=== PATIENT | male | born 1940 | race Caucasian/White ===

== ENCOUNTER 2017-09-08 21:51 | Inpatient (IN) | payer MEDICARE ==
[~2017-09-08 21:51] MED LIST: ALLO100T PO; ATEN25TA PO; DILT120C9 PO; FURO20TA PO; HYDR25TA5 PO; POTA-163 PO; WARF4TAB51 PO
[2017-09-08 22:03] VITALS: PULSE 98; RESP 16; TEMP 98.1; O2SAT 99
[2017-09-08 22:13] VITALS: BP 189/102; PULSE 90
[2017-09-08] MEDS ORDERED: TETANUS/DIPHTHERIA TOXOID ADULT 0.5 ML VIAL IM ONE (22:15)
[2017-09-08 22:22] LABS: AUTOMATED NEUTROPHIL # 4.5 TH/MM3 (1.8-7.7); BASOPHIL # 0.1 TH/MM3 (0-0.2); BASOPHIL % 0.9 % (0.0-2.0); EOSINOPHIL # 0.2 TH/MM3 (0-0.4); EOSINOPHIL % 1.9 % (0.0-4.0); HEMATOCRIT 44.4 % (39.0-51.0); HEMOGLOBIN 14.8 GM/DL (13.0-17.0); LYMPHOCYTE # 2.8 TH/MM3 (1.0-4.8); MEAN CELL VOLUME 85.6 FL (80.0-100.0); MEAN CORPUSCULAR HEMOGLOBIN 28.6 PG (27.0-34.0); MEAN CORPUSCULAR HGB CONC 33.4 % (32.0-36.0); MEAN PLATELET VOLUME 7.8 FL (7.0-11.0); MONO % 13.1 % (0.0-8.0); MONOCYTE # 1.1 TH/MM3 (0-0.9); NEUT % 52.1 % (16.0-70.0); PLATELET COUNT 265 TH/MM3 (150-450); RED BLOOD COUNT 5.19 MIL/MM3 (4.50-5.90); RED CELL DISTRIBUTION WIDTH 15.4 % (11.6-17.2); WHITE BLOOD COUNT 8.7 TH/MM3 (4.0-11.0)
--- NOTE | 2017-09-08 22:23 | PD ---
HPI Chief Complaint: Fall Time Seen by Provider: 22:02 Travel History International Travel<30 days: No Contact w/Intl Traveler<30days: No Traveled to known affect area: No History of Present Illness HPI 77-year-old male complains of right shoulder pain. Patient states that he fell from standing position on outstretched arm this evening. Patient states that he has abrasion to the nose and the chin. Patient denies any headache. Patient denies any facial pain. Patient denies any chest pain or shortness of breath. Patient denies abdominal pain. Patient complains of severe sharp pain localized the right shoulder. Patient denies any pain radiation. Patient denies any other injury. Patient states he is not up-to-date with TD booster. Patient states that he has a history of atrial ablation and on Coumadin. Patient has history of hypertension. EMS was called. Patient was given morphine 2 mg IV prior to arrival. Patient states that he had some alcohol drinks tonight also. PFSH Past Medical History Hx Anticoagulant Therapy: Yes Cardiovascular Problems: Yes Cerebrovascular Accident: Yes Social History Tobacco Use: No Allergies-Medications (Allergen,Severity, Reaction): Coded Allergies: No Known Allergies (Verified Allergy, Unknown, 09/08/17) Reported Meds & Prescriptions Reported Meds & Active Scripts Active Reported Allopurinol 100 Mg Tab 100 Mg PO DAILY Warfarin 2 Mg Tab 2 Mg PO DAILY Potassium Chloride ER (Potassium Chloride) 20 Meq Tab 20 Meq PO DAILY Furosemide 20 Mg Tab 20 Mg PO DAILY Hydrochlorothiazide 25 Mg Tab 25 Mg PO DAILY Diltiazem ER 12 HR (Diltiazem HCl) 120 Mg Caper 120 Mg PO BID Atenolol 25 Mg Tab 25 Mg PO DAILY Review of Systems General / Constitutional: No: Fever Eyes: No: Visual changes HENT: No: Headaches Cardiovascular: No: Chest Pain or Discomfort Respiratory: No: Shortness of Breath Gastrointestinal: No: Abdominal Pain Genitourinary: No: Dysuria Musculoskeletal: Positive: Pain Skin: No Rash Neurologic: No: Weakness Psychiatric: No: Depression Endocrine: No: Polydipsia Hematologic/Lymphatic: No: Easy Bruising Physical Exam Narrative GENERAL: Well-nourished, well-developed patient. SKIN: Focused skin assessment warm/dry. HEAD: Normocephalic. Patient has 1.5 cm laceration to the bridge of the nose. No active bleeding. Patient has abrasion to the chin. Patient has no tenderness on palpation of the nose and the jaw. Patient had no tenderness on palpation of the bony structures of the face. EYES: No scleral icterus. No injection or drainage. NECK: Supple, trachea midline. No JVD or lymphadenopathy. No tenderness on palpation of the neck. CARDIOVASCULAR: Regular rate and rhythm without murmurs, gallops, or rubs. RESPIRATORY: Breath sounds equal bilaterally. No accessory muscle use. GASTROINTESTINAL: Abdomen soft, non-tender, nondistended. MUSCULOSKELETAL: Patient has soft tissue swelling diffuse tenderness of the right shoulder joint. Limited range of motion of the right shoulder secondary to pain. Sensory motor function distally intact. BACK: Nontender without obvious deformity. No CVA tenderness. Neurologic exam normal. Data Data Last Documented VS Vital Signs Date Time Temp Pulse Resp B/P (MAP) Pulse Ox O2 Delivery O2 Flow Rate FiO2 09/08/17 22:13 90 189/102 (131) 09/08/17 22:05 Room Air 09/08/17 22:03 98.1 16 99 Orders Orders Complete Blood Count With Diff (09/08/17 22:03) Basic Metabolic Panel (Bmp) (09/08/17 22:03) Prothrombin Time / Inr (Pt) (09/08/17 22:03) Act Partial Throm Time (Ptt) (09/08/17 22:03) Iv Access Insert/Monitor (09/08/17 22:03) Ecg Monitoring (09/08/17 22:03) Oximetry (09/08/17 22:03) Alcohol (Ethanol) (09/08/17 22:03) Tetanus/Diphtheria Tox Adult (Tetanus/Di (09/08/17 22:15) Shoulder, Limited(2vws) (09/08/17 22:08) Ct Brain W/O Iv Contrast(Rout) (09/08/17 22:12) Ct Shoulder W/O Contrast (09/08/17 ) ^ Lab Follow Up (09/08/17 23:11) Prothrombin Complex Conc Inj (Kcentra In (09/08/17 23:45) Phytonadione Inj (Vitamin K Inj) (09/08/17 23:15) Splint Or Brace Apply/Monitor (09/08/17 23:14) Admit Order (Ed Use Only) (09/08/17 23:24) Electrocardiogram (09/08/17 23:25) Chest, Single Ap (09/08/17 23:25) Type And Screen (09/08/17 23:25) Labs Laboratory Tests Test 09/08/17 22:10 09/08/17 23:26 White Blood Count 8.7 TH/MM3 Red Blood Count 5.19 MIL/MM3 Hemoglobin 14.8 GM/DL Hematocrit 44.4 % Mean Corpuscular Volume 85.6 FL Mean Corpuscular Hemoglobin 28.6 PG Mean Corpuscular Hemoglobin Concent 33.4 % Red Cell Distribution Width 15.4 % Platelet Count 265 TH/MM3 Mean Platelet Volume 7.8 FL Neutrophils (%) (Auto) 52.1 % Lymphocytes (%) (Auto) 32.0 % Monocytes (%) (Auto) 13.1 % Eosinophils (%) (Auto) 1.9 % Basophils (%) (Auto) 0.9 % Neutrophils # (Auto) 4.5 TH/MM3 Lymphocytes # (Auto) 2.8 TH/MM3 Monocytes # (Auto) 1.1 TH/MM3 Eosinophils # (Auto) 0.2 TH/MM3 Basophils # (Auto) 0.1 TH/MM3 CBC Comment DIFF FINAL Differential Comment Prothrombin Time 26.0 SEC Prothromb Time International Ratio 2.6 RATIO Activated Partial Thromboplast Time 35.0 SEC Blood Urea Nitrogen 13 MG/DL Creatinine 1.15 MG/DL Random Glucose 145 MG/DL Calcium Level 8.5 MG/DL Sodium Level 140 MEQ/L Potassium Level 3.3 MEQ/L Chloride Level 102 MEQ/L Carbon Dioxide Level 27.8 MEQ/L Anion Gap 10 MEQ/L Estimat Glomerular Filtration Rate 62 ML/MIN Ethyl Alcohol Level LESS THAN 3 MG/DL [facility] Medical Decision Making Medical Screen Exam Complete: Yes Emergency Medical Condition: Yes Interpretation(s) 23:16 PM. Last Impressions Head CT 09/08/172211 Signed Impressions: Service Date/Time: Friday, September 08, 2017 22:32 - CONCLUSION: No acute intracranial abnormality. Lisandro Holloway MD Shoulder X-Ray 09/08/172207 Signed Impressions: Service Date/Time: Friday, September 08, 2017 22:23 - CONCLUSION: Fracture or dislocation of the glenohumeral joint as above. Lisandro Holloway MD 23:16 PM. CBC within normal limits. INR 2.6. Differential Diagnosis Differential diagnosis including fracture, dislocation, abrasion, laceration, intracranial hemorrhage. Narrative Course 77-year-old male with complains of right shoulder pain status post fall. Patient's on Coumadin. Patient has laceration to the nose and abrasion to the chin. Td booster given. INR 2.6. Patient will be given K Centra and vitamin K to reverse Coumadin. Sling and swath the right arm. Orthopedic consult Dr. Luis in a.m. for surgery. Diagnosis Primary Impression: Fracture of right humerus Qualified Codes: S42.231A - 3-part fracture of surgical neck of right humerus , initial encounter for closed fracture Additional Impressions: Dislocation, shoulder Qualified Codes: S43.004A - Unspecified dislocation of right shoulder joint, initial encounter Laceration of nose Qualified Codes: S01.21XA - Laceration without foreign body of nose, initial encounter Admitting Information Admitting Physician Requests: Admit Scripts Hydrocodone-Acetaminophen (Hydrocodone-Acetaminophen) 7.5 Mg-325 Mg Tab 1 TAB PO Q4H Y for PAIN, #60 TAB 0 Refills Prov: Yariel Juan/Utilization Review Coordinator VICTORINA 09/09/17 Waqar Mojica MD Sep 08, 2017 22:23
[2017-09-08 22:31] LABS: INTERNATIONAL NORMALIZED RATIO 2.6 RATIO
--- NOTE | 2017-09-08 22:42 | RADRPT ---
EXAM DATE/TIME: 09/08/2017 22:23 [facility] COMPARISON: No previous studies available for comparison. INDICATIONS : Right shoulder pain after fall. MEDICAL HISTORY : None. SURGICAL HISTORY : None. ENCOUNTER: Initial ACUITY: 1 day PAIN SCORE: 10/10 LOCATION: Right shoulder. FINDINGS: Comminuted fractures seen of the surgical neck and greater tuberosity of the humerus. Greater tuberos ity is superiorly displaced. There is anterior dislocation of the glenohumeral joint. CONCLUSION: Fracture or dislocation of the glenohumeral joint as above. Lisandro Holloway MD on September 08, 2017 at 22:39 Board Certified Radiologist. This report was verified electronically.
--- NOTE | 2017-09-08 22:48 | RADRPT ---
EXAM DATE/TIME: 09/08/2017 22:32 [facility] COMPARISON: No previous studies available for comparison. INDICATIONS : Trauma. Fall. RADIATION DOSE: ?41.72 CTDIvol (mGy) MEDICAL HISTORY : Cerebrovascular disease. Cardiovascular disease Hypertension. SURGICAL HISTORY : None. ENCOUNTER: Initial ACUITY: 1 day PAIN SCALE: 5/10 LOCATION: cranial TECHNIQUE: Multiple contiguous axial images were obtained of the head. Using automated exposure control and adj ustment of the mA and/or kV according to patient size, radiation dose was kept as low as reasonably a chievable to obtain optimal diagnostic quality images. DICOM format image data is available electro nically for review and comparison. FINDINGS: CEREBRUM: The ventricles are normal for age. No evidence of midline shift, mass lesion, hemorrhage or acute in farction. No extra-axial fluid collections are seen. POSTERIOR FOSSA: The cerebellum and brainstem are intact. The 4th ventricle is midline. The cerebellopontine angle i s unremarkable. EXTRACRANIAL: The visualized portion of the orbits is intact. SKULL: The calvaria is intact. No evidence of skull fracture. CONCLUSION: No acute intracranial abnormality. Lisandro Holloway MD on September 08, 2017 at 22:45 Board Certified Radiologist. This report was verified electronically.
[2017-09-08] MEDS ORDERED: PHYTONADIONE 10 MG/ML VIAL SQ ONE (23:15)
[2017-09-08] MEDS ORDERED: PROTHROMBIN COMPLEX CONC INJ 2,500 UNITS in SYRINGE/BAG 1 EA IV ONE (23:45)
--- NOTE | 2017-09-08 23:47 | HHI.HP ---
[facility] Service Family Medicine Primary Care Physician Brandon Gallegos MD Admission Diagnosis Fracture dislocation right shoulder. Patient is on anticoagulation Diagnoses: International Travel<30 Days: No Contact w/Intl Traveler<30days: No Known Affected Area: No History of Present Illness Mr. Ram is a 77-year-old white male with a past medical history of hypertension and atrial fibrillation presenting with right shoulder pain. He states that he was at the baseball game when he was walking to his seat and slipped on the edge of a step. He fell on his outstretched arm and landed on his nose. He states that he heard a pop in his arm and was unable to move it. However, he is able to move his fingers and has no loss of sensation. He did not lose consciousness. He states that after he fell he sat down and defecated all over himself. He was taken to the hospital by [facility]. Of note, he had 2 cups of beer at the game. (Vale Luna MD R1) Review of Systems Constitutional: DENIES: Fever, Chills Eyes: DENIES: Blurred vision Ears, nose, mouth, throat: DENIES: Tinnitus Respiratory: DENIES: Cough, Shortness of breath Cardiovascular: DENIES: Chest pain Gastrointestinal: DENIES: Abdominal pain, Constipation, Diarrhea Musculoskeletal: COMPLAINS OF: Joint pain, Neck pain (sore on the right side), DENIES: Back pain Neurologic: DENIES: Headache, Localized weakness, Paresthesias (Vale Luna MD R1) Past Family Social History Past Medical History CVA 2013 HTN Afib Gout HLD Glaucoma left eye CHF Past Surgical History Right eye slipped macula 2013 (distorted R vision) Right inguinal hernia x3 2009 Reported Medications Reported Meds & Active Scripts Active Reported Allopurinol 100 Mg Tab 100 Mg PO DAILY Warfarin 2 Mg Tab 2 Mg PO DAILY Potassium Chloride ER (Potassium Chloride) 20 Meq Tab 20 Meq PO DAILY Furosemide 20 Mg Tab 20 Mg PO DAILY Hydrochlorothiazide 25 Mg Tab 25 Mg PO DAILY Diltiazem ER 12 HR (Diltiazem HCl) 120 Mg Caper 120 Mg PO BID Atenolol 25 Mg Tab 25 Mg PO DAILY (Vale Luna MD R1) Allergies: Coded Allergies: No Known Allergies (Verified Allergy, Unknown, 09/08/17) Family History Mother-lung cancer 72y passed Father-MS 75y Brother-51y passed due to lung cancer Sister-60y passed due to bone cancer Social History Marital Status: Living Situation: lives alone Education: 4 years grad Work history: Currently retired, [place], management; gets some disability due to hernia Tobacco: Smokes cigars daily for 3 months. Alcohol: Occasional, 1x/week Illicit drug use: denies (Vale Luna MD R1) Physical Exam Vital Signs Vital Signs Date Time Temp Pulse Resp B/P (MAP) Pulse Ox O2 Delivery O2 Flow Rate FiO2 09/08/17 22:13 90 189/102 (131) 09/08/17 22:05 Room Air 09/08/17 22:03 98.1 98 16 99 Physical Exam GENERAL: This is a well-nourished, well-developed patient lying in bed, in no apparent distress. SKIN: Cool and dry. Ecchymoses and abrasions over nose and chin. 1 cm laceration on tip of nose. no active bleeding. HEAD: Atraumatic. Normocephalic. No temporal or scalp tenderness. EYES: Pupils equal round and reactive. Extraocular motions intact with lateral strabismus of right eye. No scleral icterus. No injection or drainage. ENT: Nose without bleeding, purulent drainage or septal hematoma. Throat without erythema, tonsillar hypertrophy or exudate. Uvula midline. Airway patent. NECK: Trachea midline. No JVD or lymphadenopathy. Supple, nontender, no meningeal signs. CARDIOVASCULAR: Irregular rate and rhythm without murmurs, gallops, or rubs. RESPIRATORY: Clear to auscultation. Breath sounds equal bilaterally. No wheezes , rales, or rhonchi. GASTROINTESTINAL: Abdomen soft, non-tender, nondistended. No hepato-splenomegaly , or palpable masses. No guarding. MUSCULOSKELETAL: Extremities without clubbing, cyanosis, or edema. No joint tenderness, effusion, or edema noted. No calf tenderness. Negative Homans sign bilaterally. Greatly limited active ROM of right arm. NEUROLOGICAL: Awake and alert. Motor and sensory grossly within normal limits. Normal speech. Laboratory Laboratory Tests Test 09/08/17 22:10 09/08/17 23:26 White Blood Count 8.7 Red Blood Count 5.19 Hemoglobin 14.8 Hematocrit 44.4 Mean Corpuscular Volume 85.6 Mean Corpuscular Hemoglobin 28.6 Mean Corpuscular Hemoglobin Concent 33.4 Red Cell Distribution Width 15.4 Platelet Count 265 Mean Platelet Volume 7.8 Neutrophils (%) (Auto) 52.1 Lymphocytes (%) (Auto) 32.0 Monocytes (%) (Auto) 13.1 Eosinophils (%) (Auto) 1.9 Basophils (%) (Auto) 0.9 Neutrophils # (Auto) 4.5 Lymphocytes # (Auto) 2.8 Monocytes # (Auto) 1.1 Eosinophils # (Auto) 0.2 Basophils # (Auto) 0.1 CBC Comment DIFF FINAL Differential Comment Prothrombin Time 26.0 Prothromb Time International Ratio 2.6 Activated Partial Thromboplast Time 35.0 (Vale Luna MD R1) Result Diagram: 09/08/172209 Imaging Last Impressions Head CT 09/08/172211 Signed Impressions: Service Date/Time: Friday, September 08, 2017 22:32 - CONCLUSION: No acute intracranial abnormality. Lisandro Holloway MD Shoulder X-Ray 09/08/172207 Signed Impressions: Service Date/Time: Friday, September 08, 2017 22:23 - CONCLUSION: Fracture or dislocation of the glenohumeral joint as above. Lisandro Holloway MD (Vale Luna MD R1) Caprini VTE Risk Assessment Caprini VTE Risk Assessment: Mod/High Risk (score >= 2) Caprini Risk Assessment Model Point Value = 1 Point Value = 2 Point Value = 3 Point Value = 5 Age 41-60 Minor surgery BMI > 25 kg/m2 Swollen legs Varicose veins or History of unexplained or recurrent spontaneous Oral contraceptives or hormone replacement Sepsis (< 1 month) Serious lung disease, including pneumonia (< 1 month) Abnormal pulmonary function Acute myocardial infarction Congestive heart failure (< 1 month) History of inflammatory bowel disease Medical patient at bed rest Age 61-74 Arthroscopic surgery Major open surgery (> 45 min) Laparoscopic surgery (> 45 min) Malignancy Confined to bed (> 72 hours) Immobilizing plaster cast Central venous access Age >= 75 History of VTE Family history of VTE Factor V Leiden Prothrombin [id number] Lupus anticoagulant Anticardiolipin antibodies Elevated serum homocysteine Heparin-induced thrombocytopenia Other congenital or acquired thrombophilia Stroke (< 1 month) Elective arthroplasty Hip, pelvis, or leg fracture Acute spinal cord injury (< 1 month) Prophylaxis Regimen Total Risk Factor Score Risk Level Prophylaxis Regimen 0-1 Low Early ambulation 2 Moderate Order ONE of the following: *Sequential Compression Device (SCD) *Heparin 5000 units SQ BID 3-4 Higher Order ONE of the following medications: *Heparin 5000 units SQ TID *Enoxaparin/Lovenox 40 mg SQ daily (WT < 150 kg, CrCl > 30 mL/min) *Enoxaparin/Lovenox 30 mg SQ daily (WT < 150 kg, CrCl > 10-29 mL/min) *Enoxaparin/Lovenox 30 mg SQ BID (WT < 150 kg, CrCl > 30 mL/min) AND/OR *Sequential Compression Device (SCD) 5 or more Highest Order ONE of the following medications: *Heparin 5000 units SQ TID (Preferred with Epidurals) *Enoxaparin/Lovenox 40 mg SQ daily (WT < 150 kg, CrCl > 30 mL/min) *Enoxaparin/Lovenox 30 mg SQ daily (WT < 150 kg, CrCl > 10-29 mL/min) *Enoxaparin/Lovenox 30 mg SQ BID (WT < 150 kg, CrCl > 30 mL/min) AND *Sequential Compression Device (SCD) (Vale Luna MD R1) Assessment and Plan Assessment and Plan 77-year-old white male with past history of repeat history of atrial fibrillation presenting to the ED with right shoulder pain after a fall. He is being admitted to our inpatient service Code Status Full code Discussed Condition With Dr. BARBARA Langston (Vale Luna MD R1) Attending Attestation Patient was seen and examined at approximately 11:45 AM, discussed with the medicine team. This 77-year-old man was at the [facility] where he fell on cement, caught himself with his right arm and hit his face. His son was with him and he was transported to the emergency department via [facility]. He has been seen by the medicine team as well as by Dr. Luis and surgery is planned for today. He is hopeful that only pins will be needed and that he will need an implant. He is on Coumadin and this has been reversed with vitamin K. We will need to discuss further anticoagulation after his surgical procedure. Significant bruising is noted of his chin, abrasion and bruising of his nose. His exam is as noted above, heart is irregular, lungs are clear, he is able to move fingers of his right hand and his sensation is intact. He is a patient of Dr. Gallegos, and we will continue to follow him throughout his hospitalization. (Yulia Langston MD) Problem List: (1) Fracture of right humerus ICD Codes: S42.301A - Unspecified fracture of shaft of humerus, right arm, initial encounter for closed fracture Status: Acute Plan: Patient with fracture and dislocation of right humerus after a fall. Head CT was negative. Shoulder x-ray on admission shows comminuted fractures of the surgical neck and greater tuberosity of the humerus. Greater tuberosity superiorly displaced. Anterior dislocation of the glenohumeral joint.\ -Orthopedic surgery consulted, appreciate recommendations -Patient to go to surgery in the a.m. with Dr. Luis -N.p.o. after midnight -Requested Coumadin to be reversed with vitamin K -pain management with Fowler and morphine as breakthrough (2) Atrial fibrillation ICD Codes: I48.91 - Unspecified atrial fibrillation Status: Chronic Plan: -Patient on warfarin 2 mg p.o. daily as anticoagulation -This was requested to be reversed by orthopedic surgery, see above -SCDs as prophylaxis for the time being until post surgery -Recheck INR in a.m. -Continue at home diltiazem ER 120 mg p.o. twice daily -Converted to diltiazem CD 240 mg at bedtime by pharmacy due to protocol -Continue at home atenolol 25 mg p.o. daily (3) HTN (hypertension) ICD Codes: I10 - Essential (primary) hypertension Status: Chronic Plan: -Continue at home hydrochlorothiazide 25 mg p.o. daily (4) Congestive heart failure ICD Codes: I50.9 - Heart failure, unspecified Status: Chronic Plan: -Continue at home furosemide 20 mg p.o. daily -Continue at home potassium chloride ER 20 mEq p.o. daily (5) Gout ICD Codes: M10.9 - Gout, unspecified Status: Chronic Plan: -Continue at home allopurinol 100 mg p.o. daily (6) FEN Status: Acute Plan: Fluids: NS @ 135ml/hr Electrolytes: Hypokalemia noted on admission, status post potassium chloride 40 mEq Nutrition: N.p.o. DVT Prophylaxis: Early ambulation. bilateral SCDs GI Prophylaxis: None indicated at this time Pain/fever management: Tylenol as needed for fever, Fowler PRN pain, morphine for breakthrough (Vale Luna MD R1) Physician Certification 2 Midnight Certification Type: Admission for Inpatient Services Order for Inpatient Services The services are ordered in accordance with Medicare regulations or non- Medicare payer requirements, as applicable. In the case of services not specified as inpatient-only, they are appropriately provided as inpatient services in accordance with the 2-midnight benchmark. Estimated LOS (days): 2 days is the estimated time the patient will need to remain in the hospital, assuming treatment plan goals are met and no additional complications. Post-Hospital Plan: Not yet determined (Vale Luna MD R1) Problem Qualifiers (1) Fracture of right humerus: Qualified Codes: S42.231A - 3-part fracture of surgical neck of right humerus, initial encounter for closed fracture (2) Atrial fibrillation: Qualified Codes: I48.91 - Unspecified atrial fibrillation (3) HTN (hypertension): Qualified Codes: I10 - Essential (primary) hypertension (4) Congestive heart failure: Qualified Codes: I50.9 - Heart failure, unspecified Vale Luna MD R1 Sep 08, 2017 23:47 Yulia Langston MD Sep 09, 2017 15:00
[2017-09-08 23:58] LABS: BICARBONATE 27.8 MEQ/L (21.0-32.0); BLOOD UREA NITROGEN 13 MG/DL (7-18); CALCIUM 8.5 MG/DL (8.5-10.1); CHLORIDE 102 MEQ/L (98-107); CREATININE 1.15 MG/DL (0.60-1.30); GLOMERULAR FILTRATION RATE 62 ML/MIN (>89); GLUCOSE,RANDOM 145 MG/DL (74-106); SODIUM (NA) 140 MEQ/L (136-145)
[2017-09-09] VITALS (14 sets, daily range): BP systolic 115–220; BP diastolic 73–112; PULSE 55–107; RESP 14–19; TEMP 98.3–99.1; O2SAT 91–100
--- NOTE | 2017-09-09 00:01 | RADRPT ---
EXAM DATE/TIME: 09/08/2017 23:35 [facility] COMPARISON: No previous studies available for comparison. INDICATIONS : Pre OP right shoulder injury, evaluate for pneumonia, pneumothorax, and communicable disease. MEDICAL HISTORY : None. SURGICAL HISTORY : None. ENCOUNTER: Initial ACUITY: 1 day PAIN SCORE: 0/10 LOCATION: Bilateral chest FINDINGS: There is a fracture dislocation of the right shoulder. Heart size enlarged. Probable dependent atelectasis. Mild vascular congestion pattern. No effusion. N o pneumothorax. CONCLUSION: 1. Cardiomegaly with vascular congestion pattern probable dependent atelectasis. 2. Fracture dislocation right shoulder. Arley Wood MD on September 08, 2017 at 23:58 Board Certified Radiologist. This report was verified electronically.
--- NOTE | 2017-09-09 00:10 | PD ---
Physical Exam Time Seen by Provider: 00:09 Data Data Last Documented VS Vital Signs Date Time Temp Pulse Resp B/P (MAP) Pulse Ox O2 Delivery O2 Flow Rate FiO2 09/08/17 22:13 90 189/102 (131) 09/08/17 22:05 Room Air 09/08/17 22:03 98.1 16 99 Orders Orders Complete Blood Count With Diff (09/08/17 22:03) Basic Metabolic Panel (Bmp) (09/08/17 22:03) Prothrombin Time / Inr (Pt) (09/08/17 22:03) Act Partial Throm Time (Ptt) (09/08/17 22:03) Iv Access Insert/Monitor (09/08/17 22:03) Ecg Monitoring (09/08/17 22:03) Oximetry (09/08/17 22:03) Alcohol (Ethanol) (09/08/17 22:03) Tetanus/Diphtheria Tox Adult (Tetanus/Di (09/08/17 22:15) Shoulder, Limited(2vws) (09/08/17 22:08) Ct Brain W/O Iv Contrast(Rout) (09/08/17 22:12) Ct Shoulder W/O Contrast (09/08/17 ) ^ Lab Follow Up (09/08/17 23:11) Prothrombin Complex Conc Inj (Kcentra In (09/08/17 23:45) Phytonadione Inj (Vitamin K Inj) (09/08/17 23:15) Splint Or Brace Apply/Monitor (09/08/17 23:14) Admit Order (Ed Use Only) (09/08/17 23:24) Electrocardiogram (09/08/17 23:25) Chest, Single Ap (09/08/17 23:25) Type And Screen (09/08/17 23:25) Labs Laboratory Tests Test 09/08/17 22:10 09/08/17 23:26 White Blood Count 8.7 TH/MM3 Red Blood Count 5.19 MIL/MM3 Hemoglobin 14.8 GM/DL Hematocrit 44.4 % Mean Corpuscular Volume 85.6 FL Mean Corpuscular Hemoglobin 28.6 PG Mean Corpuscular Hemoglobin Concent 33.4 % Red Cell Distribution Width 15.4 % Platelet Count 265 TH/MM3 Mean Platelet Volume 7.8 FL Neutrophils (%) (Auto) 52.1 % Lymphocytes (%) (Auto) 32.0 % Monocytes (%) (Auto) 13.1 % Eosinophils (%) (Auto) 1.9 % Basophils (%) (Auto) 0.9 % Neutrophils # (Auto) 4.5 TH/MM3 Lymphocytes # (Auto) 2.8 TH/MM3 Monocytes # (Auto) 1.1 TH/MM3 Eosinophils # (Auto) 0.2 TH/MM3 Basophils # (Auto) 0.1 TH/MM3 CBC Comment DIFF FINAL Differential Comment Prothrombin Time 26.0 SEC Prothromb Time International Ratio 2.6 RATIO Activated Partial Thromboplast Time 35.0 SEC Blood Urea Nitrogen 13 MG/DL Creatinine 1.15 MG/DL Random Glucose 145 MG/DL Calcium Level 8.5 MG/DL Sodium Level 140 MEQ/L Potassium Level 3.3 MEQ/L Chloride Level 102 MEQ/L Carbon Dioxide Level 27.8 MEQ/L Anion Gap 10 MEQ/L Estimat Glomerular Filtration Rate 62 ML/MIN Ethyl Alcohol Level LESS THAN 3 MG/DL MDM Medical Record Reviewed: Yes Supervised Visit with EDENILSON: No Procedures Procedure Narrative LACERATION LOCATION: Nasal bridge LENGTH: 1 cm NUMBER OF STITCHES/CARRIE: Dermabond skin adhesive REPAIR: The area of the laceration was prepped with Betadine and sterilely draped. The wound was copiously irrigated and explored without evidence of foreign body, tendon injury or neurovascular injury. The wound was closed using Dermabond skin adhesive. This was a single layer repair. A sterile dressing was applied. The patient was advised to keep the dressing clean and dry. Patient tolerated the procedure well. Diagnosis Primary Impression: Fracture of right humerus Qualified Codes: S42.231A - 3-part fracture of surgical neck of right humerus , initial encounter for closed fracture Additional Impressions: Dislocation, shoulder Qualified Codes: S43.004A - Unspecified dislocation of right shoulder joint, initial encounter Laceration of nose Qualified Codes: S01.21XA - Laceration without foreign body of nose, initial encounter Stephanie Garcia Sep 09, 2017 00:10
[2017-09-09] MEDS ORDERED: NALOXONE HCL 0.4 MG/ML AMP IV PUSH PRN (00:45)
[2017-09-09] MEDS ORDERED: SODIUM CHLORIDE 0.9% FLUSH 10 ML FLUSH IV FLUSH PRN (00:45)
[2017-09-09] MEDS ORDERED: DILTIAZEM-CD 240 MG CAP ER PO ONE (01:00)
[2017-09-09] MEDS: SODIUM CHLOR 0.9% 1000 ML INJ 1,000 ML IV SCH ×4 (01:25→20:04)
[2017-09-09] MEDS ORDERED: POTASSIUM CHLORIDE 10 MEQ CONTROLLED RELEASE TAB PO ONE (01:30)
[2017-09-09] MEDS: MORPHINE SULFATE 4 MG/ML INJ IV PUSH PRN ×3 (01:49→08:06)
[2017-09-09] MEDS: ACETAMINOPHEN/HYDROcodone 325 MG/10 MG TAB PO PRN ×3 (02:35→20:02)
[2017-09-09] MEDS ORDERED: ATENOLOL 25 MG TAB PO ONE (03:30)
[2017-09-09 04:05] LABS: AUTOMATED NEUTROPHIL # 10.8 TH/MM3 (1.8-7.7); BASOPHIL # 0.1 TH/MM3 (0-0.2); BASOPHIL % 0.4 % (0.0-2.0); EOSINOPHIL % 0.1 % (0.0-4.0); HEMATOCRIT 43.3 % (39.0-51.0); HEMOGLOBIN 14.5 GM/DL (13.0-17.0); LYMPHOCYTE # 1.7 TH/MM3 (1.0-4.8); MEAN CELL VOLUME 85.5 FL (80.0-100.0); MEAN CORPUSCULAR HEMOGLOBIN 28.7 PG (27.0-34.0); MEAN CORPUSCULAR HGB CONC 33.5 % (32.0-36.0); MONO % 9.6 % (0.0-8.0); MONOCYTE # 1.3 TH/MM3 (0-0.9); NEUT % 77.9 % (16.0-70.0); PLATELET COUNT 264 TH/MM3 (150-450); RED BLOOD COUNT 5.06 MIL/MM3 (4.50-5.90); RED CELL DISTRIBUTION WIDTH 15.4 % (11.6-17.2); WHITE BLOOD COUNT 13.8 TH/MM3 (4.0-11.0)
[2017-09-09 04:06] LABS: INTERNATIONAL NORMALIZED RATIO 1.5 RATIO; PROTHROMBIN TIME - PATIENT 14.8 SEC (9.8-11.6)
[2017-09-09] MEDS: ENALAPRILAT 1.25 MG/ML VIAL IV PUSH PRN (04:10)
[2017-09-09 04:11] LABS: ALBUMIN 3.4 GM/DL (3.4-5.0); AST (GOT) 15 U/L (15-37); BICARBONATE 32.3 MEQ/L (21.0-32.0); BLOOD UREA NITROGEN 13 MG/DL (7-18); CALCIUM 8.8 MG/DL (8.5-10.1); CHLORIDE 99 MEQ/L (98-107); CREATININE 1.11 MG/DL (0.60-1.30); GLOMERULAR FILTRATION RATE 65 ML/MIN (>89); GLUCOSE,RANDOM 133 MG/DL (74-106); SODIUM (NA) 142 MEQ/L (136-145)
[2017-09-09 04:14] LABS: ALKALINE PHOSPHATASE 74 U/L (45-117); ALT (GPT) 15 U/L (12-78); TOTAL BILIRUBIN ADULT 0.7 MG/DL (0.2-1.0); TOTAL PROTEIN 7.5 GM/DL (6.4-8.2)
--- NOTE | 2017-09-09 06:20 | RADRPT ---
EXAM DATE/TIME: 09/09/2017 05:55 [facility] COMPARISON: No previous studies available for comparison. INDICATIONS : Trauma; fall. RADIATION DOSE: 31.06 CTDIvol (mGy) MEDICAL HISTORY : Stroke. Cardiovascular disease Hypertension. SURGICAL HISTORY : None. ENCOUNTER: Initial ACUITY: 1 day PAIN SCALE: 9/10 LOCATION: Right shoulder TECHNIQUE: Volumetric scanning of the shoulder was performed. Using automated exposure control and adjustment o f the mA and/or kV according to patient size, radiation dose was kept as low as reasonably achievable to obtain optimal diagnostic quality images. DICOM format image data is available electronically f or review and comparison. FINDINGS: The humeral head fragment is dislocated inferiorly and anteriorly to the glenoid. There is a comminut ed fracture of the proximal humerus with fairly marked displacement. Greater tuberosity is avulsed ce phalad. Marked angular deformity between the humeral head and shaft with bone fragments around the ma in fracture site. Avulsion fracture inferior glenoid. CONCLUSION: 1. Severe fracture dislocation right shoulder. Arley Wood MD on September 09, 2017 at 6:16 Board Certified Radiologist. This report was verified electronically.
[2017-09-09] MEDS ORDERED: SODIUM CHLOR 0.9% 250 ML INJ 250 ML IV ONE ×2 (07:00→12:00)
[2017-09-09] MEDS ORDERED: HYDR-3580 PO (07:02)
[2017-09-09] MEDS ORDERED: METOPROLOL TARTRATE 25 MG TAB PO PRN (08:30)
[2017-09-09] MEDS ORDERED: POVIDONE IODINE 5% (ANTISEPSIS KIT) 4 APPLICATIONS EACH NARE PRN (08:30)
[2017-09-09] MEDS ORDERED: CHLORHEXIDINE GLUCONATE 2 % 1 PACK (2 CLOTHS) TOPICAL PRN (08:30)
[2017-09-09] MEDS ORDERED: SODIUM CHLORID 0.9% 500 ML IV PRN (08:30)
[2017-09-09] MEDS ORDERED: LACTATED RINGER'S 1000 ML IV PRN (08:30)
--- NOTE | 2017-09-09 08:32 | MB ---
cc: Donnie Luis MD DATE: 09/09/2017 REASON FOR CONSULTATION: Right proximal humerus fracture CONSULTING PHYSICIAN: Dr. Langston. HISTORY OF PRESENT ILLNESS: Josep is a 77-year-old male who has a history of hypertension, atrial fibrillation, and previous CVA. He was at a baseball game when he slipped and fell. He landed on his right arm and shoulder. He had immediate right shoulder pain. He did also hit his head. He denies dizziness, syncope or loss of consciousness. He presented to the emergency room where x-rays revealed a comminuted right proximal humerus fracture. He is currently awake and alert on the orthopedic floor. His only complaint is his right arm. Pain is worse with movement. PAST MEDICAL HISTORY: Illnesses: CVA, hypertension, atrial fibrillation, gout, glaucoma, CHF. Surgeries: Right eye surgery, inguinal hernia repair. MEDICATIONS: 1. Allopurinol. 2. Coumadin. 3. Potassium. 4. Lasix. 5. Hydrochlorothiazide. 6. Diltiazem. 7. Atenolol. ALLERGIES: NO KNOWN DRUG ALLERGIES. FAMILY HISTORY: Positive for lung cancer in the mother and the MS and father. Lung cancer in her brother. SOCIAL HISTORY: The patient is . He lives alone. He is retired from the [employer]. He smokes a cigar. He drinks alcohol occasionally. REVIEW OF SYSTEMS: The patient denies headache, neck pain, chest pain, shortness of breath, abdominal pain, nausea, vomiting, recent weight loss, fevers or chills, numbness or tingling of extremities or recent weight loss. He does have right eye vision loss. He complains of right shoulder pain. PHYSICAL EXAMINATION: GENERAL: The patient is a well-developed, well-nourished 77-year-old male. He is awake and alert. He is in no acute distress. He appears well-developed and well-nourished. VITAL SIGNS: Pulse 73, respirations 18, blood pressure 165/79, O2 saturation is 97% on room air. HEENT: Head, the patient is normocephalic. Pupils are equal. NECK: Soft, nontender. The trachea is in the midline. ABDOMEN: Soft, nontender, nondistended. EXTREMITIES: Examination of the right arm reveals mild swelling around the shoulder. He has no pain with elbow, wrist or finger motion. He has intact sensation in all fingers. Radial pulses palpable. He has pain with any shoulder motion. Skin is intact. Examination of the left arm reveals no pain with shoulder, elbow and wrist motion. He has intact sensation in all fingers. Radial pulses palpable. Sensation is intact in all fingers. Examination of bilateral lower extremities reveals no pain with hip, knee or ankle motion. Skin is intact to both feet. Sensation is intact to both feet. Skin is intact. X-RAYS: X-rays of the right shoulder are reviewed. X-rays reveal a displaced right proximal humerus fracture. The humeral head appears to be subluxated or dislocated anteriorly. LABORATORY DATA: White blood cell count is 13.8, hematocrit is 43, platelet count is 264, INR is 1.5. BUN is 13, creatinine is 1.11. IMPRESSION: Right proximal humerus fracture dislocation. PLAN: Treatment options were discussed with the patient. At this point, I would recommend open reduction internal fixation of right proximal humerus. If fracture is too comminuted, he may need right shoulder hemiarthroplasty. The risks of surgery include bleeding, infection, injuries to arteries, nerves or blood vessels, nonunion, malunion, loss of motion, stiffness, need for shoulder replacement, as well as medical complications including blood clots, stroke, heart attack and . All questions were answered. I will plan on surgery today. A mid-level provider in my office, nurse practitioner or PA, may see this patient on a follow-up basis and continue to implement the objective of this plan including: Starting or adjusting medications, injections of muscle, tendon, bursa or joints, cast application, orthotic or brace application, physical therapy, further radiographic studies including x-ray, MRI, CT, ultrasounds or bone scan, vascular studies, neurologic studies, or other specialist consultations, and proceeding with surgical management as appropriate. MD YANIQUE Dhaliwal/FAUZIA , 06:51 AM , 08:31 AM
[2017-09-09] MEDS: DOCUSATE SODIUM 50 MG/SENNA 8.6 MG TAB PO SCH ×2 (09:00→20:03)
[2017-09-09] MEDS: FUROSEMIDE 20 MG TAB PO SCH (09:00)
[2017-09-09] MEDS: ALLOPURINOL 100 MG TAB PO SCH (09:00)
[2017-09-09] MEDS ORDERED: ATENOLOL 25 MG TAB PO SCH (09:00)
[2017-09-09] MEDS: HYDROCHLOROTHIAZIDE 25 MG TAB PO SCH (09:00)
[2017-09-09] MEDS: POTASSIUM CHLORIDE 20 MEQ CONTROLLED RELEASE TAB PO SCH (09:00)
[2017-09-09] MEDS: SODIUM CHLORIDE 0.9% FLUSH 10 ML FLUSH IV FLUSH SCH ×2 (09:00→20:03)
--- NOTE | 2017-09-09 09:53 | HHI.FPPN ---
Subjective Remarks No acute events overnight. Patient states that his pain is well controlled on current meds. His BP was elevated on admission but has since normalized. He denies CP, SOB, NV. (Francisco Mcqueen MD R1) Objective Vitals Vital Signs Date Time Temp Pulse Resp B/P (MAP) Pulse Ox O2 Delivery O2 Flow Rate FiO2 09/09/17 09:05 98.5 70 18 119/89 96 09/09/17 08:38 98.6 70 18 144/83 91 09/09/17 07:41 99.1 75 18 153/82 (105) 95 09/09/17 05:32 73 18 165/79 (107) 97 Room Air 09/09/17 05:01 74 16 176/82 (113) 97 Room Air 09/09/17 04:30 177/80 (112) 09/09/17 04:08 80 19 220/104 (142) 09/09/17 03:25 186/99 (128) 09/09/17 02:58 20 09/09/17 02:23 82 16 192/104 (133) 09/08/17 22:13 90 189/102 (131) 09/08/17 22:05 Room Air 09/08/17 22:03 98.1 98 16 99 I/O 09/08/17 09/08/17 09/08/17 09/09/17 09/09/17 09/09/17 07:00 15:00 23:00 07:00 15:00 23:00 Intake Total 0 ml Balance 0 ml Intake Oral 0 ml # Bowel Movements 1 (Francisco Mcqueen MD R1) Result Diagram: 09/09/177 09/09/17336 Objective Remarks GENERAL: This is a well-nourished, well-developed patient sitting up in bed in [facility] SKIN: Cool and dry. Ecchymoses and abrasions over nose and chin with no active bleeding. HEAD: Atraumatic. Normocephalic. No temporal or scalp tenderness. EYES: Pupils equal round and reactive. Extraocular motions intact. No scleral icterus. No injection or drainage. ENT: Nose without bleeding, purulent drainage or septal hematoma. Uvula midline. Airway patent. NECK: Trachea midline. No JVD or lymphadenopathy. Supple, nontender, no meningeal signs. CARDIOVASCULAR: Regular rate and rhythm without murmurs, gallops, or rubs. RESPIRATORY: Clear to auscultation. Breath sounds equal bilaterally. No wheezes , rales, or rhonchi. GASTROINTESTINAL: Abdomen soft, non-tender, nondistended. No hepato-splenomegaly , or palpable masses. No guarding. MUSCULOSKELETAL: Extremities without clubbing, cyanosis, or edema. No joint tenderness, effusion, or edema noted. No calf tenderness. Negative Homans sign bilaterally. Patient is holding R arm in a fixed internally rotated position. NEUROLOGICAL: Awake and alert. Motor and sensory grossly within normal limits. Normal speech. (Francisco Mcqueen MD R1) A/P Assessment and Plan 77-year-old white male with past history of atrial fibrillation, HTN, CHF presenting to the ED with right shoulder pain after a fall. Found to have fractured dislocation of R shoulder. Orthopedic surgery consulted and planning for ORIF on 09/09. Discharge Planning Discharge planning to be further determined following operation on 09/09 (Francisco Mcqueen MD R1) Attending Attestation Patient was seen and examined at approximately 11:45 AM, discussed with the medicine team. This 77-year-old man was at the [facility] where he fell on cement, caught himself with his right arm and hit his face. His son was with him and he was transported to the emergency department via [facility]. He has been seen by the medicine team as well as by Dr. Luis and surgery is planned for today. He is hopeful that only pins will be needed and that he will need an implant. He is on Coumadin and this has been reversed with vitamin K. We will need to discuss further anticoagulation after his surgical procedure. Significant bruising is noted of his chin, abrasion and bruising of his nose. His exam is as noted above, heart is irregular, lungs are clear, he is able to move fingers of his right hand and his sensation is intact. He is a patient of Dr. Gallegos, and we will continue to follow him throughout his hospitalization. (Yulia Langston MD) (Yulia Langston MD) Problem List: (1) Fracture of right humerus ICD Codes: S42.301A - Unspecified fracture of shaft of humerus, right arm, initial encounter for closed fracture Status: Acute Plan: Patient with fracture and dislocation of right humerus after a fall. Head CT was negative. Shoulder x-ray on admission shows comminuted fractures of the surgical neck and greater tuberosity of the humerus. Greater tuberosity superiorly displaced. Anterior dislocation of the glenohumeral joint -Orthopedic surgery consulted, appreciate recommendations -Patient to go to surgery in the a.m. with Dr. Luis. Planning for ORIF but may need hemiarthroplasty -N.p.o. after midnight -Requested Coumadin to be reversed with vitamin K -pain management with Columbia and morphine as breakthrough - currently well controlled (2) Atrial fibrillation ICD Codes: I48.91 - Unspecified atrial fibrillation Status: Chronic Plan: -Patient on warfarin 2 mg p.o. daily as anticoagulation -This was requested to be reversed by orthopedic surgery, see above -SCDs as prophylaxis for the time being until post surgery -INR of 2.6 on admission - corrected to 1.5 after vitamin K on 09/09. Ortho giving FFP to further correct INR prior to surgery on 09/09 -Continue at home diltiazem ER 120 mg p.o. twice daily -Converted to diltiazem CD 240 mg at bedtime by pharmacy due to protocol -Continue at home atenolol 25 mg p.o. daily (3) HTN (hypertension) ICD Codes: I10 - Essential (primary) hypertension Status: Chronic Plan: -Continue at home hydrochlorothiazide 25 mg p.o. daily (4) Congestive heart failure ICD Codes: I50.9 - Heart failure, unspecified Status: Chronic Plan: -Continue at home furosemide 20 mg p.o. daily -Continue at home potassium chloride ER 20 mEq p.o. daily (5) Gout ICD Codes: M10.9 - Gout, unspecified Status: Chronic Plan: -Continue at home allopurinol 100 mg p.o. daily (6) FEN Status: Acute Plan: Fluids: NS @ 135ml/hr Electrolytes: Will replete as needed Nutrition: N.p.o. for surgery DVT Prophylaxis: Early ambulation. bilateral SCDs GI Prophylaxis: None indicated at this time Pain/fever management: Tylenol as needed for fever, Columbia PRN pain, morphine for breakthrough (Francisco Mcqueen MD R1) Problem Qualifiers (1) Fracture of right humerus: Qualified Codes: S42.231A - 3-part fracture of surgical neck of right humerus, initial encounter for closed fracture (2) Atrial fibrillation: Qualified Codes: I48.91 - Unspecified atrial fibrillation (3) HTN (hypertension): Qualified Codes: I10 - Essential (primary) hypertension (4) Congestive heart failure: Qualified Codes: I50.9 - Heart failure, unspecified Francisco Mcqueen MD R1 Sep 09, 2017 09:53 Yulia Langston MD Sep 09, 2017 15:01
[2017-09-09] MEDS ORDERED: ceFAZolin INJ 1,000 MG VIAL ONE (11:44)
[2017-09-09] MEDS ORDERED: GENTAMICIN SULFATE 80 MG/2 ML VIAL ONE (11:44)
[2017-09-09] MEDS ORDERED: VANCOMYCIN HCL 1000 MG VIAL ONE (11:44)
[2017-09-09] MEDS ORDERED: LACTATED RINGER'S 1000 ML INJ 1,000 ML IV ONE (12:00)
[2017-09-09] MEDS ORDERED: PHENYLEPH/NS 1000 MCG/10 ML SYR IV ONE (12:00)
[2017-09-09] MEDS ORDERED: NEOSTIGMINE 5 MG/5 ML SYRINGE IV PUSH ONE (12:00)
[2017-09-09] MEDS ORDERED: SUCCINYLCHOLINE CHLORIDE 100 MG/5 ML SYRINGE IV PUSH ONE (12:00)
[2017-09-09] MEDS ORDERED: ONDANSETRON HCL 4 MG/2 ML VIAL IV ONE (12:00)
[2017-09-09] MEDS ORDERED: LIDOCAINE HCL 1% PF 5 ML SYRINGE OTHER ONE (12:00)
[2017-09-09] MEDS ORDERED: GLYCOPYRROLATE 1 MG/5 ML SYRINGE IV PUSH ONE (12:00)
[2017-09-09] MEDS ORDERED: ROCURONIUM INJ 50 MG/5 ML SYRINGE IV PUSH ONE (12:00)
[2017-09-09] MEDS ORDERED: PROPOFOL 200 MG/20 ML AMP IV ONE (12:00)
[2017-09-09 12:44] LABS: INTERNATIONAL NORMALIZED RATIO 1.6 RATIO; PROTHROMBIN TIME - PATIENT 16.4 SEC (9.8-11.6)
--- NOTE | 2017-09-09 14:57 | PD.OP ---
cc: Donnie Espinal MD Operative Report Date of Surgery: Sep 09, 2017 Preoperative Diagnosis: Displaced right proximal humerus fracture with dislocation Postoperative Diagnosis: Procedure: Open reduction right shoulder dislocation, open reduction internal fixation right proximal humerus fracture Anesthesia: General Surgeon: Donnie Espinal Cigarette Roller(s): KALYAN Yan PA-C The surgical procedure was assisted by my physician radiology practitioner assistant. My P.A. presence was necessary throughout this case for the manipulation and positioning of the surgical extremity. My P.A. was assisting me throughout the duration of this procedure. The skill set of a physician radiology practitioner assistant was medically necessary to complete this procedure. During the surgical case the surgical services manager was working at the back table and the physician radiology practitioner assistant was directly assisting me. Operation and Findings: Implants used: Synthes Plan of activity: Sling and swath, nonweightbearing Details of procedure: Patient was seen and evaluated preoperatively. Patient was found to have a displaced proximal humerus fracture. The risks and benefits of surgical and nonsurgical options were discussed in detail and informed consent was obtained for surgery. Patient was brought to the operating room and placed on or table. IV sedation and GETA were administered by anesthesiologist. Antibiotics were given prior to incision. Operative arm and shoulder were prepped with alcohol followed by Hibiclens and draped usual sterile fashion. Timeout procedure was performed. Procedure began with a 5 inch incision over the anterior shoulder. Cephalic vein was identified. A deltopectoral approach was utilized. The fracture was now visualized. Soft tissue was retracted. A #5 FiberWire suture was placed into the rotator rotator cuff and greater tuberosity. A second #5 FiberWire suture was placed into the lesser tuberosity and subscapularis tendon. Attention was now turned to reduction. Traction was applied. A Steinmann pin was placed in the humeral head to help manipulate it. The humeral head was reduced to the glenoid. Fluoroscopy confirmed appropriate reduction of the glenohumeral joint. Next attention was turned towards open reduction internal fixation of the fracture. Gentle traction was applied. The humeral shaft was reduced to the humeral head. Fracture was manipulated to achieve excellent reduction. Multiplanar fluoroscopy confirmed well aligned fracture. Multiple K wires were used to hold provisional fixation. A Synthes proximal humerus plate was selected. Plate was provisionally held in place K wires. 3.5 cortical screws were used to compress plate to bone. Fluoroscopy confirmed appropriate plate placement and fracture reduction. Multiple locking screws were now placed in the humeral head. Screws were predrilled and premeasured for appropriate length. Care was taken not to penetrate the articular surface. Additional screws were placed in the humeral shaft. There was a defect in the metaphyseal region. 5 cc of Norian calcium phosphate cement was mixed. Cement was placed in the metaphyseal region. The FiberWire suture was passed through the holes of the plate and sutured to the plate for additional stability. Final fluoroscopy revealed well aligned fracture with well-placed hardware. Wound was thoroughly irrigated. Fascia was closed with #1 Vicryl, subcutaneous tissues closed with 3-0 Vicryl, and skin was closed with giovanni. Sterile dressings were applied. Patient was placed into a sling. Patient was awakened and transferred to recovery in stable condition. Needle and sponge counts were correct. Donnie Espinal MD Sep 09, 2017 14:57
[2017-09-09] MEDS: ERGOCALCIFEROL (VIT D2) 50,000 UNIT CAP PO SCH (15:00)
[2017-09-09] MEDS ORDERED: *MEPERIDINE 25 MG INJ VIAL PERIprocedural Use ONLY ONE (15:34)
[2017-09-09] MEDS ORDERED: DO NOT ADM ANY ANTICOAGULANT DRUGS PRN (15:35)
[2017-09-09] MEDS ORDERED: *morphine SULFATE 4 MG/ML PERIprocedure ONLY ONE (15:43)
--- NOTE | 2017-09-09 15:45 | OTSOAPIP ---
TIME SESSION COMPLETED: 1543 TREATMENT TIME: 0 MINS. CHART REVIEWED. PATIENT ADMITTED WITH A DISPLACED RIGHT PROXIMAL HUMERUS FRACTURE WITH DISLOCATION AFTER A FALL. . PATIENT NOT AVAILABLE WENT TO SURGERY AT 12:55 FOR OPEN REDUCTION RIGHT SHOULDER DISLOCATION, OPEN REDUCTION INTERNAL FIXATION RIGHT PROXIMAL HUMERUS FRACTURE. PATIENT STILL IN THE RECOVERY ROOM AT 1543. PLAN: WILL SEE PATIENT NEXT TREATMENT DAY Therapist: KILEY GU/Radha Signature on file
--- NOTE | 2017-09-09 16:02 | RADRPT ---
EXAM DATE/TIME: 09/09/2017 14:38 [facility] COMPARISON: No previous studies available for comparison. INDICATIONS : ORIF right humeral head fracture. MEDICAL HISTORY : Unobtainable. SURGICAL HISTORY : Unobtainable. ENCOUNTER: Subsequent ACUITY: 2 days PAIN SCORE: Non-responsive. LOCATION: Right proximal humerus. FINDINGS: Multiple fluoroscopic images of the humerus demonstrate interval plate and screw fixation of comminut ed fracture of the proximal humerus. Hardware appears well-positioned. There is near-anatomic alignme nt of the fragments. There is grossly normal anatomic alignment of the glenohumeral joint. CONCLUSION: 1. Status post right humeral ORIF, as above. Laci Jurado MD on September 09, 2017 at 15:54 Board Certified Radiologist. This report was verified electronically.
[2017-09-09] MEDS: CALCIUM/VITAMIN D 250 MG/125 U TAB PO SCH (18:00)
[2017-09-09] MEDS: DILTIAZEM-CD 240 MG CAP ER PO SCH (20:03)
[2017-09-09] MEDS: ceFAZolin 2 GM PREMIX 50 ML IV SCH (20:03)
[2017-09-09] MEDS: ATENOLOL 25 MG TAB PO SCH (20:03)
[2017-09-09] MEDS: ONDANSETRON HCL 4 MG/2 ML VIAL IVP PRN (20:17)
[2017-09-10] VITALS: BP 135/85; PULSE 105; RESP 18; TEMP 98.8; O2SAT 93
[2017-09-10] MEDS: ACETAMINOPHEN/HYDROcodone 325 MG/10 MG TAB PO PRN ×3 (00:29→23:17)
[2017-09-10] MEDS: SODIUM CHLOR 0.9% 1000 ML INJ 1,000 ML IV SCH (02:51)
[2017-09-10 04:00] VITALS: BP 151/72; PULSE 101; RESP 18; TEMP 98.7; O2SAT 93
[2017-09-10] MEDS: ceFAZolin 2 GM PREMIX 50 ML IV SCH ×2 (05:24→13:03)
[2017-09-10] MEDS: ONDANSETRON HCL 4 MG/2 ML VIAL IVP PRN (06:19)
--- NOTE | 2017-09-10 07:01 | PD.ORT.PN ---
Subjective Subjective Remarks POD 1 s/p ORIF right proximal humerus doing well. reports pain controlled but having issue with vomiting. had urinary retention last night and had to be straight cath'd Objective Vitals Vital Signs Date Time Temp Pulse Resp B/P (MAP) Pulse Ox O2 Delivery O2 Flow Rate FiO2 09/10/17 04:00 98.7 101 18 151/72 (98) 93 09/10/17 00:00 98.8 105 18 135/85 (102) 93 09/09/17 20:00 99.0 107 18 183/112 (135) 91 09/09/17 17:05 98.5 66 18 121/73 (89) 95 09/09/17 16:15 98.5 73 22 149/71 (97) 97 Nasal Cannula 2 09/09/17 16:00 74 25 159/78 (105) 96 Nasal Cannula 3 09/09/17 15:45 76 22 131/79 (96) 95 Nasal Cannula 3 09/09/17 15:30 98.6 80 20 146/76 (99) 94 Nasal Cannula 3 09/09/17 13:57 98.7 65 14 115/75 100 09/09/17 12:00 98.3 55 18 165/85 (111) 94 09/09/17 11:23 98.9 72 18 143/85 95 09/09/17 09:05 98.5 70 18 119/89 96 09/09/17 08:38 98.6 70 18 144/83 91 09/09/17 07:41 99.1 75 18 153/82 (105) 95 I/O 09/09/17 09/09/17 09/09/17 09/10/17 09/10/17 09/10/17 07:00 15:00 23:00 07:00 15:00 23:00 Intake Total 0 ml 1452 ml 960 ml Output Total 550 ml Balance 0 ml 1452 ml 410 ml Intake Oral 0 ml 960 ml FFP 635 ml Blood Product IV Normal Saline Flush 817 ml Output Urine Total 550 ml # Voids 1 # Bowel Movements 1 Result Diagram: 09/09/17 0337 09/09/17 0337 Other Results Laboratory Tests Test 09/09/17 12:22 Prothromb Time International Ratio 1.6 RATIO Prothrombin Time 16.4 SEC (9.8-11.6) Objective Remarks RUE: dressings clean and dry. itnact. NVI. +sling/swathe Assessment & Plan Assessment and Plan 1) Right Proximal Humerus Fx s/p ORIF - POd 1 -NWB -no motion -maintain sling and swathe at all times -daily dressing changes POD 2 -CM for rehab vs home with [facility] -medical mgmt of vomiting and urinary retention -f/u with Luis or PA in 2 weeks Yariel Juan/Materials And Processes Manager VICTORINA Sep 10, 2017 07:01
[2017-09-10 07:07] LABS: HEMATOCRIT 37.2 % (39.0-51.0); HEMOGLOBIN 12.6 GM/DL (13.0-17.0); MEAN CELL VOLUME 85.3 FL (80.0-100.0); MEAN CORPUSCULAR HGB CONC 33.9 % (32.0-36.0); MEAN PLATELET VOLUME 8.5 FL (7.0-11.0); PLATELET COUNT 250 TH/MM3 (150-450); RED BLOOD COUNT 4.36 MIL/MM3 (4.50-5.90); RED CELL DISTRIBUTION WIDTH 15.8 % (11.6-17.2); WHITE BLOOD COUNT 18.1 TH/MM3 (4.0-11.0)
[2017-09-10 07:12] LABS: INTERNATIONAL NORMALIZED RATIO 1.4 RATIO; PROTHROMBIN TIME - PATIENT 13.9 SEC (9.8-11.6)
[2017-09-10 07:32] VITALS: BP 153/116; PULSE 102; RESP 19; TEMP 99.6; O2SAT 94
[2017-09-10 07:43] LABS: BICARBONATE 25.2 MEQ/L (21.0-32.0); CALCIUM 8.1 MG/DL (8.5-10.1); CREATININE 1.13 MG/DL (0.60-1.30)
[2017-09-10] MEDS ORDERED: PROMETHAZINE INJ 25 MG/ML VIAL IM PRN (08:30)
[2017-09-10] MEDS: POTASSIUM CHLORIDE 20 MEQ CONTROLLED RELEASE TAB PO SCH (09:00)
[2017-09-10] MEDS: SODIUM CHLORIDE 0.9% FLUSH 10 ML FLUSH IV FLUSH SCH ×2 (09:00→19:50)
[2017-09-10] MEDS: ALLOPURINOL 100 MG TAB PO SCH (09:29)
[2017-09-10] MEDS: CHOLECALCIFEROL (VIT D3) 1000 UNIT TAB PO SCH (09:29)
[2017-09-10] MEDS: CALCIUM/VITAMIN D 250 MG/125 U TAB PO SCH ×3 (09:29→16:25)
[2017-09-10] MEDS: DOCUSATE SODIUM 50 MG/SENNA 8.6 MG TAB PO SCH ×2 (09:30→19:50)
[2017-09-10] MEDS: HYDROCHLOROTHIAZIDE 25 MG TAB PO SCH (09:30)
[2017-09-10] MEDS: FUROSEMIDE 20 MG TAB PO SCH (09:30)
[2017-09-10] MEDS ORDERED: CALCIUM CARBONATE 1.25 GM (CA 500 MG) TAB PO ONE (09:45)
[2017-09-10] MEDS ORDERED: POTASSIUM CHLORIDE 10 MEQ CAP PO ONE (09:45)
--- NOTE | 2017-09-10 10:41 | HHI.FPPN ---
Subjective Remarks Pt seen and examined this morning. POD#1 from ORIF yesterday with ortho. Tolerated procedure well. Having some nausea and vomiting this morning, states it was mainly the Pepsi he drank. Pain well controlled. Difficulty urinating after surgery and had straight cath x1. Denies any urination since. No bowel movement, passing gas. Denies any chest pain, SOB, abdominal pain, leg pain. (Brandon Gallegos MD R2) Objective Vitals Vital Signs Date Time Temp Pulse Resp B/P (MAP) Pulse Ox O2 Delivery O2 Flow Rate FiO2 09/10/17 07:32 99.6 102 19 153/116 (128) 94 09/10/17 04:00 98.7 101 18 151/72 (98) 93 09/10/17 00:00 98.8 105 18 135/85 (102) 93 09/09/17 20:00 99.0 107 18 183/112 (135) 91 09/09/17 17:05 98.5 66 18 121/73 (89) 95 09/09/17 16:15 98.5 73 22 149/71 (97) 97 Nasal Cannula 2 09/09/17 16:00 74 25 159/78 (105) 96 Nasal Cannula 3 09/09/17 15:45 76 22 131/79 (96) 95 Nasal Cannula 3 09/09/17 15:30 98.6 80 20 146/76 (99) 94 Nasal Cannula 3 09/09/17 13:57 98.7 65 14 115/75 100 09/09/17 12:00 98.3 55 18 165/85 (111) 94 09/09/17 11:23 98.9 72 18 143/85 95 I/O 09/09/17 09/09/17 09/09/17 09/10/17 09/10/17 09/10/17 07:00 15:00 23:00 07:00 15:00 23:00 Intake Total 0 ml 1452 ml 50 ml 2460 ml Output Total 550 ml Balance 0 ml 1452 ml 50 ml 1910 ml Intake Oral 0 ml 960 ml IV Total 50 ml 1500 ml FFP 635 ml Blood Product IV Normal Saline Flush 817 ml Output Urine Total 550 ml # Voids 1 # Bowel Movements 1 (Brandon Gallegos MD R2) Result Diagram: 09/10/1718 09/10/1718 Objective Remarks GENERAL: This is a well-nourished, well-developed patient sitting up in bed in NAD SKIN: Cool and dry. Ecchymoses and abrasions over nose and chin with no active bleeding. CARDIOVASCULAR: Regular rate with occasional skipped beats, normal sinus RESPIRATORY: Clear to auscultation. Breath sounds equal bilaterally. No wheezes , rales, or rhonchi. GASTROINTESTINAL: Abdomen soft, non-tender, nondistended. Bowel sounds positive. MUSCULOSKELETAL: Right arm in sling with wrap and gauze. Moves fingers spontaneously and fingers sensation intact. No calf pain. NEUROLOGICAL: Awake and alert. Motor and sensory grossly within normal limits. Normal speech. (Brandon Gallegos MD R2) A/P Assessment and Plan 77-year-old white male with past history of atrial fibrillation, HTN, CHF presenting to the ED with right shoulder pain after a fall. Found to have fractured dislocation of R shoulder. Orthopedic surgery consulted and ORIF on . Discharge Planning Pending ortho clearance Will need SNF vs home health on discharge (Brandon Gallegos MD R2) Attending Attestation Pt. seen and examined, discussed with medicine team. Still complaining of some nausea despite IM phenergan and Zofran. Pain seems well-controlled. I agree with the physical exam findings as noted, as well as with the plan. (Yulia Langston MD) Problem List: (1) Fracture of right humerus ICD Codes: S42.301A - Unspecified fracture of shaft of humerus, right arm, initial encounter for closed fracture Status: Acute Plan: Patient with fracture and dislocation of right humerus after a fall. Head CT was negative. Shoulder x-ray on admission shows comminuted fractures of the surgical neck and greater tuberosity of the humerus. Greater tuberosity superiorly displaced. Anterior dislocation of the glenohumeral joint -Orthopedic surgery consulted, appreciate recommendations -ORIF 09/09, POD#1 -Will clarify with ortho regarding anticoagulation recs -PT/OT -pain management with [place] and morphine as breakthrough - currently well controlled (2) Atrial fibrillation ICD Codes: I48.91 - Unspecified atrial fibrillation Status: Chronic Plan: -Patient on warfarin 2 mg p.o. daily as anticoagulation -This was requested to be reversed by orthopedic surgery -SCDs as prophylaxis for the time being until post surgery -INR of 2.6 on admission - corrected to 1.5 after vitamin K on 09/09. -Will confirm with ortho for anticoagulation and will discuss changing agent upon discharge -Continue at home diltiazem ER 120 mg p.o. twice daily -Converted to diltiazem CD 240 mg at bedtime by pharmacy due to protocol -Continue at home atenolol 25 mg p.o. daily (3) HTN (hypertension) ICD Codes: I10 - Essential (primary) hypertension Status: Chronic Plan: -Continue at home hydrochlorothiazide 25 mg p.o. daily (4) Congestive heart failure ICD Codes: I50.9 - Heart failure, unspecified Status: Chronic Plan: -Continue at home furosemide 20 mg p.o. daily -Continue at home potassium chloride ER 20 mEq p.o. daily (5) Gout ICD Codes: M10.9 - Gout, unspecified Status: Chronic Plan: -Continue at home allopurinol 100 mg p.o. daily (6) FEN Status: Acute Plan: Fluids: NS @ 135ml/hr Electrolytes: Will replete as needed Nutrition: regular diet DVT Prophylaxis: Early ambulation. bilateral SCDs GI Prophylaxis: None indicated at this time Pain/fever management: Tylenol as needed for fever, [place] PRN pain, morphine for breakthrough (Brandon Gallegos MD R2) Problem Qualifiers (1) Fracture of right humerus: Qualified Codes: S42.231A - 3-part fracture of surgical neck of right humerus, initial encounter for closed fracture (2) Atrial fibrillation: Qualified Codes: I48.91 - Unspecified atrial fibrillation (3) HTN (hypertension): Qualified Codes: I10 - Essential (primary) hypertension (4) Congestive heart failure: Qualified Codes: I50.9 - Heart failure, unspecified rBandon Gallegos MD R2 Sep 10, 2017 10:41 Yulia Langston MD Sep 10, 2017 15:00
[2017-09-10] MEDS ORDERED: PROCHLORPERAZINE 25 MG SUPP RECTAL PRN (11:30)
[2017-09-10 11:44] VITALS: BP 160/105; PULSE 96; RESP 19; TEMP 99.3; O2SAT 96
[2017-09-10 16:00] VITALS: BP 138/81; PULSE 90; RESP 19; TEMP 99.4; O2SAT 94
[2017-09-10] MEDS: ENOXAPARIN SODIUM 40 MG/0.4 ML SYRINGE SQ SCH (16:25)
[2017-09-10] MEDS: ACETAMINOPHEN/HYDROcodone 325 MG/5 MG TAB PO PRN (16:25)
[2017-09-10] MEDS: DILTIAZEM-CD 240 MG CAP ER PO SCH (19:50)
[2017-09-10] MEDS: MAGNESIUM HYDROXIDE SUSP 30 ML CUP PO PRN (19:50)
[2017-09-10] MEDS: ATENOLOL 25 MG TAB PO SCH (19:50)
[2017-09-10 20:08] VITALS: BP 118/72; PULSE 93; RESP 18; TEMP 98.4; O2SAT 93
[2017-09-10] MEDS: diphenhydrAMINE HCL 25 MG CAP PO PRN (23:17)
[2017-09-11] VITALS (8 sets, daily range): BP systolic 125–161; BP diastolic 63–105; PULSE 71–98; RESP 18–19; TEMP 98.2–99.4; O2SAT 93–98
--- NOTE | 2017-09-11 06:57 | PD.ORT.PN ---
Subjective Subjective Remarks POD 2 s/p ORIF right proximal humerus doing well. states vomiting has subsided. still having issues voiding Objective Vitals Vital Signs Date Time Temp Pulse Resp B/P (MAP) Pulse Ox O2 Delivery O2 Flow Rate FiO2 09/11/17 00:00 98.6 95 18 125/74 (91) 93 09/10/17 20:08 98.4 93 18 118/72 (87) 93 09/10/17 16:00 99.4 90 19 138/81 (100) 94 09/10/17 11:44 99.3 96 19 160/105 (123) 96 09/10/17 07:32 99.6 102 19 153/116 (128) 94 I/O 09/10/17 09/10/17 09/10/17 09/11/17 09/11/17 09/11/17 07:00 15:00 23:00 07:00 15:00 23:00 Intake Total 2460 ml Output Total 550 ml 350 ml Balance 1910 ml -350 ml Intake Oral 960 ml IV Total 1500 ml Output Urine Total 550 ml 350 ml Result Diagram: 09/10/1718 09/10/17 0518 Objective Remarks RUE: dressings clean and dry. itnact. NVI. +sling/swathe Assessment & Plan Assessment and Plan 1) Right Proximal Humerus Fx s/p ORIF - POD 2 -NWB -no motion -maintain sling and swathe at all times -daily dressing changes POD 2 -CM for rehab vs home with [facility] -medical mgmt of vomiting and urinary retention -f/u with Janelle or PA in 2 weeks Yariel Juan/[employer] PA Sep 11, 2017 06:57
[2017-09-11] MEDS ORDERED: POTASSIUM CHLORIDE 10 MEQ CONTROLLED RELEASE TAB PO ONE (07:30)
[2017-09-11] MEDS ORDERED: CALCIUM CARBONATE 1.25 GM (CA 500 MG) TAB PO ONE (07:30)
[2017-09-11 08:58] LABS: BASOPHIL % 0.3 % (0.0-2.0); EOSINOPHIL % 0.3 % (0.0-4.0); HEMATOCRIT 35.1 % (39.0-51.0); HEMOGLOBIN 11.7 GM/DL (13.0-17.0); LYMPH % 10.7 % (9.0-44.0); LYMPHOCYTE # 1.5 TH/MM3 (1.0-4.8); MEAN CELL VOLUME 86.7 FL (80.0-100.0); MEAN CORPUSCULAR HEMOGLOBIN 28.8 PG (27.0-34.0); MEAN CORPUSCULAR HGB CONC 33.2 % (32.0-36.0); MEAN PLATELET VOLUME 8.8 FL (7.0-11.0); MONO % 12.4 % (0.0-8.0); MONOCYTE # 1.8 TH/MM3 (0-0.9); NEUT % 76.3 % (16.0-70.0); PLATELET COUNT 212 TH/MM3 (150-450); RED BLOOD COUNT 4.05 MIL/MM3 (4.50-5.90); RED CELL DISTRIBUTION WIDTH 16.1 % (11.6-17.2); WHITE BLOOD COUNT 14.4 TH/MM3 (4.0-11.0)
[2017-09-11] MEDS: POTASSIUM CHLORIDE 20 MEQ CONTROLLED RELEASE TAB PO SCH (09:13)
[2017-09-11] MEDS: ACETAMINOPHEN/HYDROcodone 325 MG/5 MG TAB PO PRN (09:13)
[2017-09-11] MEDS: FUROSEMIDE 20 MG TAB PO SCH (09:14)
[2017-09-11] MEDS: HYDROCHLOROTHIAZIDE 25 MG TAB PO SCH (09:14)
[2017-09-11] MEDS: CHOLECALCIFEROL (VIT D3) 1000 UNIT TAB PO SCH (09:14)
[2017-09-11] MEDS: ALLOPURINOL 100 MG TAB PO SCH (09:14)
[2017-09-11] MEDS: DOCUSATE SODIUM 50 MG/SENNA 8.6 MG TAB PO SCH ×2 (09:14→21:31)
[2017-09-11] MEDS: CALCIUM/VITAMIN D 250 MG/125 U TAB PO SCH ×3 (09:14→16:07)
[2017-09-11] MEDS: SODIUM CHLORIDE 0.9% FLUSH 10 ML FLUSH IV FLUSH SCH ×2 (09:15→21:31)
[2017-09-11 09:27] LABS: BICARBONATE 29.7 MEQ/L (21.0-32.0); CALCIUM 8.6 MG/DL (8.5-10.1); CREATININE 1.25 MG/DL (0.60-1.30)
--- NOTE | 2017-09-11 10:10 | HHI.FPPN ---
Subjective Remarks No acute events overnight. Patient's nausea and vomiting have improved since yesterday afternoon and he tolerated breakfast with no difficulties. States his pain is also well controlled. He was able to urinate a little this morning on his own. Denies chest pain, shortness of breath, abdominal pain. (Francisco Mcqueen MD R1) Objective Vitals Vital Signs Date Time Temp Pulse Resp B/P (MAP) Pulse Ox O2 Delivery O2 Flow Rate FiO2 09/11/17 07:42 99.4 88 19 133/105 (114) 95 09/11/17 00:00 98.6 95 18 125/74 (91) 93 09/10/17 20:08 98.4 93 18 118/72 (87) 93 09/10/17 16:00 99.4 90 19 138/81 (100) 94 09/10/17 11:44 99.3 96 19 160/105 (123) 96 I/O 09/10/17 09/10/17 09/10/17 09/11/17 09/11/17 09/11/17 07:00 15:00 23:00 07:00 15:00 23:00 Intake Total 2460 ml Output Total 550 ml 350 ml Balance 1910 ml -350 ml Intake Oral 960 ml IV Total 1500 ml Output Urine Total 550 ml 350 ml (Francisco Mcqueen MD R1) Result Diagram: 09/11/17 0801 09/11/17 0801 Objective Remarks GENERAL: This is a well-nourished, well-developed patient sitting up in bed in [facility] SKIN: Cool and dry. Ecchymoses and abrasions over nose and chin with no active bleeding. CARDIOVASCULAR: Regular rate with occasional skipped beats, normal sinus RESPIRATORY: Clear to auscultation. Breath sounds equal bilaterally. No wheezes , rales, or rhonchi. GASTROINTESTINAL: Abdomen soft, non-tender, nondistended. Bowel sounds positive. MUSCULOSKELETAL: Right arm in sling with wrap and gauze. Moves fingers spontaneously and fingers sensation intact. No calf pain. NEUROLOGICAL: Awake and alert. Motor and sensory grossly within normal limits. Normal speech. (Francisco Mcqueen MD R1) A/P Assessment and Plan 77-year-old white male with past history of atrial fibrillation, HTN, CHF presenting to the ED with right shoulder pain after a fall. Found to have fractured dislocation of R shoulder. Orthopedic surgery consulted and ORIF on . Patient has had some urinary retention postoperatively as well as some nausea and vomiting which have been improving. Discharge Planning Pending orthopedics clearance. Will need SNF vs home health on discharge. Inquiring about insurance coverage of anticoagulation moving forward (Francisco Mcqueen MD R1) Attending Attestation Patient seen and examined with the medicine team. Case reviewed and discussed with the resident team. Agree with physical findings as documented and with theplan of care as discussed with me and documented in the resident note. (Yulia Langston MD) Problem List: (1) Fracture of right humerus ICD Codes: S42.301A - Unspecified fracture of shaft of humerus, right arm, initial encounter for closed fracture Status: Acute Plan: Patient with fracture and dislocation of right humerus after a fall. Head CT was negative. Shoulder x-ray on admission shows comminuted fractures of the surgical neck and greater tuberosity of the humerus. Greater tuberosity superiorly displaced. Anterior dislocation of the glenohumeral joint -Orthopedic surgery consulted, appreciate recommendations -ORIF 09/09, POD#2 -Initiated Lovenox for anticoagulation 24 hours postoperatively. -PT/OT -pain management with [place] and morphine as breakthrough - currently well controlled (2) Atrial fibrillation ICD Codes: I48.91 - Unspecified atrial fibrillation Status: Chronic Plan: -Patient on warfarin 2 mg p.o. daily as anticoagulation -This was requested to be reversed by orthopedic surgery -INR of 2.6 on admission - corrected to 1.5 after vitamin K on 09/09. -Started Lovenox 40 mg daily on 09/10 -Consulting case management to inquire about insurance coverage for Xarelto as a possible long-term anticoagulant -Continue at home diltiazem ER 120 mg p.o. twice daily -Converted to diltiazem CD 240 mg at bedtime by pharmacy due to protocol -Continue at home atenolol 25 mg p.o. daily (3) Urinary retention ICD Codes: R33.9 - Retention of urine, unspecified Plan: Patient has had urinary retention postoperatively requiring occasional in and out cath He states he has had some urination on his own today We will continue to monitor, consider adding Flomax (4) HTN (hypertension) ICD Codes: I10 - Essential (primary) hypertension Status: Chronic Plan: -Continue at home hydrochlorothiazide 25 mg p.o. daily (5) Congestive heart failure ICD Codes: I50.9 - Heart failure, unspecified Status: Chronic Plan: -Continue at home furosemide 20 mg p.o. daily -Continue at home potassium chloride ER 20 mEq p.o. daily (6) Gout ICD Codes: M10.9 - Gout, unspecified Status: Chronic Plan: -Continue at home allopurinol 100 mg p.o. daily (7) FEN Status: Acute Plan: Fluids: No IVF at this time Electrolytes: Will replete as needed Nutrition: regular diet DVT Prophylaxis: Lovenox GI Prophylaxis: None indicated at this time Pain/fever management: Tylenol as needed for fever, [place] PRN pain, morphine for breakthrough (Francisco Mcqueen MD R1) Problem Qualifiers (1) Fracture of right humerus: Qualified Codes: S42.231A - 3-part fracture of surgical neck of right humerus, initial encounter for closed fracture (2) Atrial fibrillation: Qualified Codes: I48.91 - Unspecified atrial fibrillation (3) HTN (hypertension): Qualified Codes: I10 - Essential (primary) hypertension (4) Congestive heart failure: Qualified Codes: I50.9 - Heart failure, unspecified Francisco Mcqueen MD R1 Sep 11, 2017 10:10 Yulia Langston MD Sep 11, 2017 11:33
[2017-09-11] MEDS: ENOXAPARIN SODIUM 40 MG/0.4 ML SYRINGE SQ SCH (16:08)
[2017-09-11] MEDS: ATENOLOL 25 MG TAB PO SCH (21:31)
[2017-09-11] MEDS: DILTIAZEM-CD 240 MG CAP ER PO SCH (21:31)
[2017-09-11] MEDS: diphenhydrAMINE HCL 25 MG CAP PO PRN (23:20)
[2017-09-12] VITALS (7 sets, daily range): BP systolic 127–187; BP diastolic 78–103; PULSE 69–117; RESP 17–24; TEMP 98.2–99; O2SAT 95–97
[2017-09-12] MEDS: ONDANSETRON HCL 4 MG/2 ML VIAL IVP PRN ×3 (03:38→15:47)
[2017-09-12] MEDS: ACETAMINOPHEN/HYDROcodone 325 MG/10 MG TAB PO PRN (03:54)
[2017-09-12 06:14] LABS: BASOPHIL # 0.1 TH/MM3 (0-0.2); BASOPHIL % 0.4 % (0.0-2.0); EOSINOPHIL # 0.1 TH/MM3 (0-0.4); EOSINOPHIL % 0.4 % (0.0-4.0); HEMATOCRIT 36.4 % (39.0-51.0); HEMOGLOBIN 12.2 GM/DL (13.0-17.0); LYMPH % 6.6 % (9.0-44.0); MEAN CELL VOLUME 85.9 FL (80.0-100.0); MEAN CORPUSCULAR HEMOGLOBIN 28.9 PG (27.0-34.0); MEAN CORPUSCULAR HGB CONC 33.6 % (32.0-36.0); MEAN PLATELET VOLUME 8.3 FL (7.0-11.0); MONO % 9.9 % (0.0-8.0); MONOCYTE # 1.4 TH/MM3 (0-0.9); NEUT % 82.7 % (16.0-70.0); PLATELET COUNT 265 TH/MM3 (150-450); RED BLOOD COUNT 4.24 MIL/MM3 (4.50-5.90); WHITE BLOOD COUNT 14.6 TH/MM3 (4.0-11.0)
--- NOTE | 2017-09-12 06:38 | PD.ORT.PN ---
Subjective Subjective Remarks POD 3 s/p ORIF right proximal humerus doing well. reports that shoulder is doing well. however, states significant increase in nausea and vomiting. reports that he cannot keep any food down. Objective Vitals Vital Signs Date Time Temp Pulse Resp B/P (MAP) Pulse Ox O2 Delivery O2 Flow Rate FiO2 09/11/17 22:14 98.9 95 18 148/89 (108) 96 09/11/17 20:22 98 Nasal Cannula 2.00 09/11/17 19:24 98.9 82 18 138/84 (102) 98 09/11/17 15:45 98.2 71 19 132/63 (86) 97 09/11/17 11:41 98.8 98 19 161/75 (103) 95 09/11/17 10:13 18 09/11/17 09:03 95 Nasal Cannula 2.00 09/11/17 07:42 99.4 88 19 133/105 (114) 95 I/O 09/11/17 09/11/17 09/11/17 09/12/17 09/12/17 09/12/17 07:00 15:00 23:00 07:00 15:00 23:00 Intake Total 800 ml Output Total 350 ml 100 ml Balance -350 ml 700 ml Intake Oral 800 ml Output Urine Total 350 ml 100 ml Bladder Scan Volume Amount 800 ml Result Diagram: 09/12/17 0549 09/11/17 0801 Objective Remarks RUE: dressings clean and dry. itnact. NVI. +sling/swathe Assessment & Plan Assessment and Plan 1) Right Proximal Humerus Fx s/p ORIF - POD 3 -NWB -no motion -maintain sling and swathe at all times -daily dressing changes -CM for rehab vs home with [facility] -medical mgmt of vomiting and urinary retention -f/u with Janelle or PA in 2 weeks Yariel Juan/Employee Benefits Director PA Sep 12, 2017 06:38
[2017-09-12 06:48] LABS: CALCIUM 9.6 MG/DL (8.5-10.1); CREATININE 0.96 MG/DL (0.60-1.30)
[2017-09-12] MEDS: POTASSIUM CHLORIDE 20 MEQ CONTROLLED RELEASE TAB PO SCH (08:28)
[2017-09-12] MEDS: DOCUSATE SODIUM 50 MG/SENNA 8.6 MG TAB PO SCH ×2 (08:28→20:26)
[2017-09-12] MEDS: SODIUM CHLORIDE 0.9% FLUSH 10 ML FLUSH IV FLUSH SCH ×2 (08:30→20:26)
[2017-09-12] MEDS: CALCIUM/VITAMIN D 250 MG/125 U TAB PO SCH ×4 (08:30→17:35)
[2017-09-12] MEDS: CHOLECALCIFEROL (VIT D3) 1000 UNIT TAB PO SCH (08:30)
[2017-09-12] MEDS: HYDROCHLOROTHIAZIDE 25 MG TAB PO SCH ×2 (08:34→20:26)
[2017-09-12] MEDS: ALLOPURINOL 100 MG TAB PO SCH (08:34)
[2017-09-12] MEDS: FUROSEMIDE 20 MG TAB PO SCH (08:48)
--- NOTE | 2017-09-12 09:49 | HHI.FPPN ---
Subjective Remarks Pt seen and examined this morning. Did ok overnight, but this morning having more nausea/vomiting. States the nausea started after taking his [place]. States he can't keep anything down, including liquids. Did have bowel movement yesterday, passing gas. Denies any abdominal pain. States his pain is well controlled. Did have to be straight cathed several times yesterday, but did void spontaneously this morning, nurse reports more than yesterday. Denies any fever/chills, chest pain, SOB, leg pain/swelling. (Brandon Gallegos MD R2) Objective Vitals Vital Signs Date Time Temp Pulse Resp B/P (MAP) Pulse Ox O2 Delivery O2 Flow Rate FiO2 09/12/17 09:05 97 Nasal Cannula 2.00 09/12/17 08:00 99.0 110 18 182/95 (124) 97 09/11/17 22:14 98.9 95 18 148/89 (108) 96 09/11/17 20:22 98 Nasal Cannula 2.00 09/11/17 19:24 98.9 82 18 138/84 (102) 98 09/11/17 15:45 98.2 71 19 132/63 (86) 97 09/11/17 11:41 98.8 98 19 161/75 (103) 95 09/11/17 10:13 18 I/O 09/11/17 09/11/17 09/11/17 09/12/17 09/12/17 09/12/17 07:00 15:00 23:00 07:00 15:00 23:00 Intake Total 800 ml 480 ml Output Total 350 ml 100 ml 300 ml 175 ml Balance -350 ml 700 ml 180 ml -175 ml Intake Oral 800 ml 480 ml Output Urine Total 350 ml 100 ml 300 ml 175 ml Bladder Scan Volume Amount 800 ml # Voids 1 # Bowel Movements 1 (Brandon Gallegos MD R2) Result Diagram: 09/12/17 0549 09/12/17 0549 Objective Remarks GENERAL: This is a well-nourished, well-developed patient sitting up in bed in NAD SKIN: Cool and dry. Ecchymoses and abrasions over nose and chin with no active bleeding. CARDIOVASCULAR: Regular rate with occasional skipped beats, normal sinus RESPIRATORY: Clear to auscultation. Breath sounds equal bilaterally. No wheezes , rales, or rhonchi. GASTROINTESTINAL: Abdomen soft, non-tender, nondistended. Bowel sounds positive. MUSCULOSKELETAL: Right arm in sling with wrap and gauze. Moves fingers spontaneously and fingers sensation intact. No calf pain. NEUROLOGICAL: Awake and alert. Normal speech. (Brandon Gallegos MD R2) A/P Assessment and Plan 77-year-old white male with past history of atrial fibrillation, HTN, CHF presenting to the ED with right shoulder pain after a fall. Found to have fractured dislocation of R shoulder. Orthopedic surgery consulted and ORIF on . Patient has had some urinary retention postoperatively as well as some nausea and vomiting which have been improving. Discharge Planning Pending medical stabilization Will need SNF upon discharge Inquiring about insurance coverage of anticoagulation moving forward (Brandon Gallegos MD R2) Attending Attestation Patient seen and examined, discussed with the medicine team and with his nurse. He persists in having frequent nausea and vomiting. His nurse reports that he vomited his medications right after they were given this morning. He is adamant that he take his diltiazem and furosemide in the morning and his allopurinol and HCTZ in the evening. I agree with the exam findings as documented, and we will discontinue all narcotics. He will need skilled rehab and son is aware that he needs to make some choices. I do not believe he is ready for discharge today. (Yulia Langston MD) Problem List: (1) Fracture of right humerus ICD Codes: S42.301A - Unspecified fracture of shaft of humerus, right arm, initial encounter for closed fracture Status: Acute Plan: Patient with fracture and dislocation of right humerus after a fall. Head CT was negative. Shoulder x-ray on admission shows comminuted fractures of the surgical neck and greater tuberosity of the humerus. Greater tuberosity superiorly displaced. Anterior dislocation of the glenohumeral joint -Orthopedic surgery consulted, appreciate recommendations -ORIF 09/09, POD#3 -Continue Lovenox for anticoagulation -PT/OT -Will hold [place], as may be causing nausea -Tylenol for pain (2) Atrial fibrillation ICD Codes: I48.91 - Unspecified atrial fibrillation Status: Chronic Plan: -Patient on warfarin 2 mg p.o. daily as anticoagulation -This was requested to be reversed by orthopedic surgery -INR of 2.6 on admission - corrected to 1.5 after vitamin K on 4/24. -Started Lovenox 40 mg daily on 09/10 -Consulting case management to inquire about insurance coverage for Xarelto as a possible long-term anticoagulant -Continue at home diltiazem ER 120 mg p.o. twice daily -Converted to diltiazem CD 240 mg at bedtime by pharmacy due to protocol -Continue at home atenolol 25 mg p.o. daily (3) Urinary retention ICD Codes: R33.9 - Retention of urine, unspecified Plan: Patient has had urinary retention postoperatively requiring occasional in and out cath Improving We will continue to monitor, consider adding Flomax (4) HTN (hypertension) ICD Codes: I10 - Essential (primary) hypertension Status: Chronic Plan: -Continue at home hydrochlorothiazide 25 mg p.o. daily (5) Congestive heart failure ICD Codes: I50.9 - Heart failure, unspecified Status: Chronic Plan: -Continue at home furosemide 20 mg p.o. daily -Continue at home potassium chloride ER 20 mEq p.o. daily (6) Gout ICD Codes: M10.9 - Gout, unspecified Status: Chronic Plan: -Continue at home allopurinol 100 mg p.o. daily (7) FEN Status: Acute Plan: Fluids: No IVF at this time Electrolytes: Will replete as needed Nutrition: regular diet DVT Prophylaxis: Lovenox GI Prophylaxis: None indicated at this time Pain/fever management: Tylenol as needed (Brandon Gallegos MD R2) Problem Qualifiers (1) Fracture of right humerus: Qualified Codes: S42.231A - 3-part fracture of surgical neck of right humerus, initial encounter for closed fracture (2) Atrial fibrillation: Qualified Codes: I48.91 - Unspecified atrial fibrillation (3) HTN (hypertension): Qualified Codes: I10 - Essential (primary) hypertension (4) Congestive heart failure: Qualified Codes: I50.9 - Heart failure, unspecified Brandon Gallegos MD R2 Sep 12, 2017 09:49 Yulia Langston MD Sep 12, 2017 11:14
[2017-09-12] MEDS: ENALAPRILAT 1.25 MG/ML VIAL IV PUSH PRN ×2 (09:53→15:47)
[2017-09-12] MEDS ORDERED: POTASSIUM CHLORIDE 10 MEQ CONTROLLED RELEASE TAB PO ONE (10:00)
[2017-09-12] MEDS ORDERED: POTASSIUM CHLORIDE 20 MEQ CONTROLLED RELEASE TAB PO ONE (15:00)
[2017-09-12] MEDS: ACETAMINOPHEN 325 MG TAB PO PRN (15:09)
[2017-09-12] MEDS: ENOXAPARIN SODIUM 40 MG/0.4 ML SYRINGE SQ SCH (15:10)
[2017-09-12] MEDS ORDERED: PROMETHAZINE INJ 25 MG/ML VIAL IM ONE (16:30)
--- NOTE | 2017-09-12 16:50 | RADRPT ---
EXAM DATE/TIME: 09/12/2017 16:28 [place] COMPARISON: No previous studies available for comparison. INDICATIONS : Abdominal distention/discomfort. MEDICAL HISTORY : Cardiovascular disease. Hypertension SURGICAL HISTORY : None. ENCOUNTER: Initial ACUITY: 1 month PAIN SCORE: 5/10 LOCATION: Abdomen. FINDINGS: Supine view of the abdomen was performed. The stomach is markedly distended with air The abdominal b owel gas pattern is normal. No abnormal masses, calcifications, or organomegaly is seen. The osseou s structures are unremarkable. CONCLUSION: Marked distention of the stomach. Otherwise unremarkable bowel gas pattern. Ulises England MD on September 12, 2017 at 16:47 Board Certified Radiologist. This report was verified electronically.
[2017-09-12] MEDS: DILTIAZEM-CD 240 MG CAP ER PO SCH (20:26)
[2017-09-12] MEDS: ATENOLOL 25 MG TAB PO SCH (20:27)
[2017-09-12] MEDS: diphenhydrAMINE HCL 25 MG CAP PO PRN (22:50)
[2017-09-13] VITALS: BP 153/94; PULSE 83; RESP 22; TEMP 98.9; O2SAT 96
[2017-09-13 07:20] VITALS: BP 173/95; PULSE 87; RESP 18; TEMP 98.5; O2SAT 97
--- NOTE | 2017-09-13 08:31 | HHI.FPPN ---
Subjective Remarks Pt seen and examined this morning. Pt had continued nausea/vomiting overnight, KUB was performed. He received Phenergan, which he states helped more than the zofran he was getting. Denies any nausea/vomiting since. Passing gas. Still limited appetite. States the shoulder pain is well controlled with the tylenol. Able to urinate without difficulty. Denies any fever/chills, chest pain, SOB, cough, abdominal pain, leg pain. Objective Vitals Vital Signs Date Time Temp Pulse Resp B/P (MAP) Pulse Ox O2 Delivery O2 Flow Rate FiO2 09/13/17 07:20 98.5 87 18 173/95 (121) 97 09/13/17 00:00 98.9 83 22 153/94 (113) 96 09/12/17 21:44 Nasal Cannula 2.00 09/12/17 21:06 Nasal Cannula 2.00 09/12/17 19:54 98.8 84 18 149/86 (107) 97 09/12/17 18:18 127/78 (94) 09/12/17 15:52 98.2 84 17 144/103 (117) 96 09/12/17 13:55 69 137/82 (100) 09/12/17 11:16 98.6 117 24 187/103 (131) 95 09/12/17 09:05 97 Nasal Cannula 2.00 I/O 09/12/17 09/12/17 09/12/17 09/13/17 09/13/17 09/13/17 07:00 15:00 23:00 07:00 15:00 23:00 Intake Total 480 ml 480 ml Output Total 300 ml 175 ml Balance 180 ml -175 ml 480 ml Intake Oral 480 ml 480 ml Output Urine Total 300 ml 175 ml # Voids 1 3 # Bowel Movements 1 0 Result Diagram: 09/12/17 0549 09/12/17 0549 Objective Remarks GENERAL: This is a well-nourished, well-developed patient sitting up in bed in [facility] SKIN: Cool and dry. Ecchymoses and abrasions over nose and chin with no active bleeding. CARDIOVASCULAR: Regular rate with occasional skipped beats, normal sinus rhythm RESPIRATORY: Clear to auscultation. Breath sounds equal bilaterally. No wheezes , rales, or rhonchi. GASTROINTESTINAL: Abdomen soft, non-tender, nondistended. Bowel sounds positive. MUSCULOSKELETAL: Right arm in sling with wrap and gauze. Bandage c/d/i. Moves fingers spontaneously and fingers sensation intact. No calf pain. NEUROLOGICAL: Awake and alert. Normal speech. A/P Assessment and Plan 77-year-old white male with past history of atrial fibrillation, HTN, CHF presenting to the ED with right shoulder pain after a fall. Found to have fractured dislocation of R shoulder. Orthopedic surgery consulted and ORIF on . Patient has had some urinary retention postoperatively as well as some nausea and vomiting which have been improving. Discharge Planning Possibly today Will need SNF upon discharge Inquiring about insurance coverage of anticoagulation moving forward Problem List: (1) Fracture of right humerus ICD Codes: S42.301A - Unspecified fracture of shaft of humerus, right arm, initial encounter for closed fracture Status: Acute Plan: Patient with fracture and dislocation of right humerus after a fall. Head CT was negative. Shoulder x-ray on admission shows comminuted fractures of the surgical neck and greater tuberosity of the humerus. Greater tuberosity superiorly displaced. Anterior dislocation of the glenohumeral joint -Orthopedic surgery consulted, appreciate recommendations -ORIF 09/09, POD#4 -Continue Lovenox for anticoagulation -Daily dressing changes -PT/OT -Will hold [place], as may be causing nausea -Tylenol for pain (2) Atrial fibrillation ICD Codes: I48.91 - Unspecified atrial fibrillation Status: Chronic Plan: -Patient on warfarin 2 mg p.o. daily as anticoagulation -This was requested to be reversed by orthopedic surgery -INR of 2.6 on admission - corrected to 1.5 after vitamin K on 09/09. -Started Lovenox 40 mg daily on 09/10 -Consulting case management to inquire about insurance coverage for Xarelto as a possible long-term anticoagulant -Continue at home diltiazem ER 120 mg p.o. twice daily -Converted to diltiazem CD 240 mg daily by pharmacy due to protocol -Continue at home atenolol 25 mg p.o. daily (3) Urinary retention ICD Codes: R33.9 - Retention of urine, unspecified Plan: Patient has had urinary retention postoperatively requiring occasional in and out cath Improving We will continue to monitor, consider adding Flomax (4) HTN (hypertension) ICD Codes: I10 - Essential (primary) hypertension Status: Chronic Plan: -Continue at home hydrochlorothiazide 25 mg p.o. daily (5) Congestive heart failure ICD Codes: I50.9 - Heart failure, unspecified Status: Chronic Plan: -Continue at home furosemide 20 mg p.o. daily -Continue at home potassium chloride ER 20 mEq p.o. daily (6) Gout ICD Codes: M10.9 - Gout, unspecified Status: Chronic Plan: -Continue at home allopurinol 100 mg p.o. daily (7) FEN Status: Acute Plan: Fluids: No IVF at this time Electrolytes: Will replete as needed Nutrition: regular diet DVT Prophylaxis: Lovenox GI Prophylaxis: None indicated at this time Pain/fever management: Tylenol as needed Problem Qualifiers (1) Fracture of right humerus: Qualified Codes: S42.231A - 3-part fracture of surgical neck of right humerus, initial encounter for closed fracture (2) Atrial fibrillation: Qualified Codes: I48.91 - Unspecified atrial fibrillation (3) HTN (hypertension): Qualified Codes: I10 - Essential (primary) hypertension (4) Congestive heart failure: Qualified Codes: I50.9 - Heart failure, unspecified Brandon Gallegos MD R2 Sep 13, 2017 08:31
[2017-09-13] MEDS: POTASSIUM CHLORIDE 20 MEQ CONTROLLED RELEASE TAB PO SCH (08:33)
[2017-09-13] MEDS: CHOLECALCIFEROL (VIT D3) 1000 UNIT TAB PO SCH (08:33)
[2017-09-13] MEDS: FUROSEMIDE 20 MG TAB PO SCH (08:33)
[2017-09-13] MEDS: DOCUSATE SODIUM 50 MG/SENNA 8.6 MG TAB PO SCH ×2 (08:33→20:19)
[2017-09-13] MEDS: ALLOPURINOL 100 MG TAB PO SCH (08:34)
[2017-09-13] MEDS: CALCIUM/VITAMIN D 250 MG/125 U TAB PO SCH ×3 (08:36→18:00)
[2017-09-13] MEDS: SODIUM CHLORIDE 0.9% FLUSH 10 ML FLUSH IV FLUSH SCH ×2 (09:00→20:19)
[2017-09-13] MEDS ORDERED: PROMETHAZINE INJ 25 MG/ML VIAL IM PRN (09:00)
--- NOTE | 2017-09-13 09:52 | HHI.DCPOC ---
Discharge Care Plan Diagnosis: (1) Dislocation, shoulder (2) Urinary retention (3) Congestive heart failure (4) Atrial fibrillation Goals to Promote Your Health * To prevent worsening of your condition and complications * To maintain your health at the optimal level Directions to Meet Your Goals Take your medications as prescribed Follow your dietary instruction Follow activity as directed Keep your appointments as scheduled Take your immunizations and boosters as scheduled If your symptoms worsen call your PCP, if no PCP go to Urgent Care Center or Emergency Room Smoking is Dangerous to Your Health. Avoid second hand smoke Call the 24-hour hour crisis hotline for domestic abuse at Brandon Gallegos MD R2 Sep 13, 2017 09:52
[2017-09-13] MEDS: DILTIAZEM-CD 240 MG CAP ER PO SCH (10:30)
[2017-09-13 11:41] LABS: AUTOMATED NEUTROPHIL # 11.1 TH/MM3 (1.8-7.7); BASOPHIL % 0.1 % (0.0-2.0); EOSINOPHIL # 0.1 TH/MM3 (0-0.4); EOSINOPHIL % 0.9 % (0.0-4.0); HEMATOCRIT 36.2 % (39.0-51.0); LYMPH % 8.4 % (9.0-44.0); LYMPHOCYTE # 1.2 TH/MM3 (1.0-4.8); MEAN CELL VOLUME 85.9 FL (80.0-100.0); MEAN CORPUSCULAR HEMOGLOBIN 28.5 PG (27.0-34.0); MEAN CORPUSCULAR HGB CONC 33.1 % (32.0-36.0); MEAN PLATELET VOLUME 8.3 FL (7.0-11.0); MONO % 10.7 % (0.0-8.0); MONOCYTE # 1.5 TH/MM3 (0-0.9); NEUT % 79.9 % (16.0-70.0); PLATELET COUNT 292 TH/MM3 (150-450); RED BLOOD COUNT 4.21 MIL/MM3 (4.50-5.90); WHITE BLOOD COUNT 13.9 TH/MM3 (4.0-11.0)
[2017-09-13 12:00] VITALS: BP 170/100; PULSE 87; RESP 18; TEMP 98.2; O2SAT 96
[2017-09-13 12:17] LABS: BICARBONATE 33.1 MEQ/L (21.0-32.0); CALCIUM 9.1 MG/DL (8.5-10.1); CREATININE 0.86 MG/DL (0.60-1.30)
[2017-09-13] MEDS: ACETAMINOPHEN 325 MG TAB PO PRN (12:49)
[2017-09-13 16:00] VITALS: BP 152/80; PULSE 91; RESP 18; TEMP 98.3; O2SAT 99
[2017-09-13] MEDS: ENOXAPARIN SODIUM 40 MG/0.4 ML SYRINGE SQ SCH (16:00)
[2017-09-13] MEDS: MAGNESIUM HYDROXIDE SUSP 30 ML CUP PO PRN (19:24)
[2017-09-13 20:00] VITALS: BP 143/78; PULSE 75; RESP 16; TEMP 98.5; O2SAT 99
[2017-09-13] MEDS: ATENOLOL 25 MG TAB PO SCH (20:18)
[2017-09-13] MEDS: HYDROCHLOROTHIAZIDE 25 MG TAB PO SCH (20:18)
[2017-09-14] VITALS: BP 130/79; PULSE 61; RESP 18; TEMP 97.3; O2SAT 99
[2017-09-14] MEDS: diphenhydrAMINE HCL 25 MG CAP PO PRN ×2 (01:47→21:14)
[2017-09-14 06:53] LABS: HEMOGLOBIN 11.8 GM/DL (13.0-17.0); MEAN CELL VOLUME 86.2 FL (80.0-100.0); MEAN CORPUSCULAR HEMOGLOBIN 29.1 PG (27.0-34.0); MEAN CORPUSCULAR HGB CONC 33.7 % (32.0-36.0); MEAN PLATELET VOLUME 8.1 FL (7.0-11.0); PLATELET COUNT 270 TH/MM3 (150-450); RED BLOOD COUNT 4.05 MIL/MM3 (4.50-5.90); WHITE BLOOD COUNT 10.8 TH/MM3 (4.0-11.0)
[2017-09-14 07:01] LABS: BICARBONATE 33.4 MEQ/L (21.0-32.0); CALCIUM 8.8 MG/DL (8.5-10.1); CREATININE 0.87 MG/DL (0.60-1.30)
[2017-09-14 08:00] VITALS: BP 149/85; PULSE 68; RESP 18; TEMP 98.5; O2SAT 98
--- NOTE | 2017-09-14 08:39 | HHI.FPPN ---
Subjective Remarks Patient seen and examined this morning. No acute events overnight. Patient states his nausea vomiting has improved. He does get a little nauseous when taking his medications, however he has been taken on empty stomach. Passing gas , no bowel movement overnight. No vomiting. Pain well-controlled. Urinating without difficulty. Denies any fever/chills, chest pain, shortness of breath, abdominal pain, leg pain. (Brandon Gallegos MD R2) Objective Vitals Vital Signs Date Time Temp Pulse Resp B/P (MAP) Pulse Ox O2 Delivery O2 Flow Rate FiO2 09/14/17 00:00 97.3 61 18 130/79 (96) 99 09/13/17 20:00 98.5 75 16 143/78 (99) 99 09/13/17 20:00 99 Nasal Cannula 2.00 09/13/17 16:00 98.3 91 18 152/80 (104) 99 09/13/17 14:00 18 09/13/17 12:00 98.2 87 18 170/100 (123) 96 09/13/17 09:42 Nasal Cannula 2.00 I/O 09/13/17 09/13/17 09/13/17 09/14/17 09/14/17 09/14/17 07:00 15:00 23:00 07:00 15:00 23:00 Intake Total 480 ml 600 ml 640 ml Output Total 300 ml Balance 480 ml 600 ml 340 ml Intake Oral 480 ml 600 ml 640 ml Output Urine Total 300 ml # Voids 3 3 1 # Bowel Movements 0 0 0 (Brandon Gallegos MD R2) Result Diagram: 09/14/17 0532 09/14/17 0532 Imaging Last Impressions Abdomen X-Ray 09/12/17 0000 Signed Impressions: Service Date/Time: Tuesday, September 12, 2017 16:28 - CONCLUSION: Marked distention of the stomach. Otherwise unremarkable bowel gas pattern. Ulises England MD Shoulder X-Ray 09/09/17 0000 Signed Impressions: Service Date/Time: Saturday, September 09, 2017 14:38 - CONCLUSION: 1. Status post right humeral ORIF, as above. Laci Jurado MD Chest X-Ray 09/08/17 [id number] Signed Impressions: Service Date/Time: Friday, September 08, 2017 23:35 - CONCLUSION: 1. Cardiomegaly with vascular congestion pattern probable dependent atelectasis. 2. Fracture dislocation right shoulder. rAley Wood MD Head CT 09/08/17 2212 Signed Impressions: Service Date/Time: Friday, September 08, 2017 22:32 - CONCLUSION: No acute intracranial abnormality. Lisandro Holloway MD Upper Extremity CT 09/08/17 0000 Signed Impressions: Service Date/Time: Saturday, September 09, 2017 05:55 - CONCLUSION: 1. Severe fracture dislocation right shoulder. Arley Wood MD Objective Remarks GENERAL: This is a well-nourished, well-developed patient lying in bed, NAD SKIN: Cool and dry. Healing ecchymoses and abrasions over nose and chin with no active bleeding. CARDIOVASCULAR: Regular rate with occasional skipped beats, normal sinus rhythm RESPIRATORY: Clear to auscultation. Diminished breath sounds. No wheezes, rales , or rhonchi. GASTROINTESTINAL: Abdomen soft, non-tender, nondistended. Bowel sounds positive. MUSCULOSKELETAL: Right arm in sling with wrap and gauze. Bandage c/d/i. Moves fingers spontaneously and fingers sensation intact. No calf pain. NEUROLOGICAL: Awake and alert. Normal speech. (Brandon Gallegos MD R2) A/P Assessment and Plan 77-year-old white male with past history of atrial fibrillation, HTN, CHF presenting to the ED with right shoulder pain after a fall. Found to have fractured dislocation of R shoulder. Orthopedic surgery consulted and ORIF on . Patient has had some urinary retention postoperatively as well as some nausea and vomiting which have been improving. Discharge Planning Possibly today Will need SNF upon discharge, awaiting acceptance Inquiring about insurance coverage of anticoagulation moving forward (Brandon Gallegos MD R2) Attending Attestation Patient seen and examined. Case reviewed and discussed with the resident team. Agree with the findings and plan of care as discussed with me and documented in the resident note. (Yulia Langston MD) Problem List: (1) Fracture of right humerus ICD Codes: S42.301A - Unspecified fracture of shaft of humerus, right arm, initial encounter for closed fracture Status: Acute Plan: Patient with fracture and dislocation of right humerus after a fall. Head CT was negative. Shoulder x-ray on admission shows comminuted fractures of the surgical neck and greater tuberosity of the humerus. Greater tuberosity superiorly displaced. Anterior dislocation of the glenohumeral joint -Orthopedic surgery consulted, appreciate recommendations -ORIF 09/09, POD#5 -Continue Lovenox for anticoagulation -Daily dressing changes -PT/OT -Will hold [place], as may be causing nausea -Tylenol for pain (2) Atrial fibrillation ICD Codes: I48.91 - Unspecified atrial fibrillation Status: Chronic Plan: -Patient on warfarin 2 mg p.o. daily as anticoagulation -This was requested to be reversed by orthopedic surgery -INR of 2.6 on admission - corrected to 1.5 after vitamin K on 09/09. -Started Lovenox 40 mg daily on 09/10 -Consulting case management to inquire about insurance coverage for Xarelto as a possible long-term anticoagulant -Continue at home diltiazem ER 120 mg p.o. twice daily -Converted to diltiazem CD 240 mg daily by pharmacy due to protocol -Continue at home atenolol 25 mg p.o. daily (3) Urinary retention ICD Codes: R33.9 - Retention of urine, unspecified Status: Resolved Plan: Patient has had urinary retention postoperatively requiring occasional in and out cath Improving We will continue to monitor, consider adding Flomax (4) HTN (hypertension) ICD Codes: I10 - Essential (primary) hypertension Status: Chronic Plan: -Continue at home hydrochlorothiazide 25 mg p.o. daily (5) Congestive heart failure ICD Codes: I50.9 - Heart failure, unspecified Status: Chronic Plan: -Continue at home furosemide 20 mg p.o. daily -Continue at home potassium chloride ER 20 mEq p.o. daily (6) Gout ICD Codes: M10.9 - Gout, unspecified Status: Chronic Plan: -Continue at home allopurinol 100 mg p.o. daily (7) FEN Status: Acute Plan: Fluids: No IVF at this time Electrolytes: Will replete as needed Nutrition: regular diet DVT Prophylaxis: Lovenox GI Prophylaxis: None indicated at this time Pain/fever management: Tylenol as needed (Brandon Gallegos MD R2) Problem Qualifiers (1) Fracture of right humerus: Qualified Codes: S42.231A - 3-part fracture of surgical neck of right humerus, initial encounter for closed fracture (2) Atrial fibrillation: Qualified Codes: I48.91 - Unspecified atrial fibrillation (3) HTN (hypertension): Qualified Codes: I10 - Essential (primary) hypertension (4) Congestive heart failure: Qualified Codes: I50.9 - Heart failure, unspecified Brandon Gallegos MD R2 Sep 14, 2017 08:39 Yulia Langston MD Sep 14, 2017 12:37
[2017-09-14] MEDS ORDERED: PERI PO (08:40)
[2017-09-14] MEDS ORDERED: ENOX40P SQ (08:40)
[2017-09-14] MEDS: DILTIAZEM-CD 240 MG CAP ER PO SCH (08:50)
[2017-09-14] MEDS: POTASSIUM CHLORIDE 20 MEQ CONTROLLED RELEASE TAB PO SCH (08:50)
[2017-09-14] MEDS: CALCIUM/VITAMIN D 250 MG/125 U TAB PO SCH ×3 (08:50→16:56)
[2017-09-14] MEDS: CHOLECALCIFEROL (VIT D3) 1000 UNIT TAB PO SCH (08:50)
[2017-09-14] MEDS: FUROSEMIDE 20 MG TAB PO SCH (08:50)
[2017-09-14] MEDS: ALLOPURINOL 100 MG TAB PO SCH (08:51)
[2017-09-14] MEDS: DOCUSATE SODIUM 50 MG/SENNA 8.6 MG TAB PO SCH ×2 (08:51→20:13)
[2017-09-14] MEDS: ACETAMINOPHEN 325 MG TAB PO PRN (08:58)
[2017-09-14] MEDS: SODIUM CHLORIDE 0.9% FLUSH 10 ML FLUSH IV FLUSH SCH ×2 (09:04→21:15)
--- NOTE | 2017-09-14 09:50 | PD.ORT.PN ---
Subjective Subjective Remarks Resting comfortably no new complaints Objective Vitals Vital Signs Date Time Temp Pulse Resp B/P (MAP) Pulse Ox O2 Delivery O2 Flow Rate FiO2 09/14/17 08:00 98.5 68 18 149/85 (106) 98 09/14/17 00:00 97.3 61 18 130/79 (96) 99 09/13/17 20:00 98.5 75 16 143/78 (99) 99 09/13/17 20:00 99 Nasal Cannula 2.00 09/13/17 16:00 98.3 91 18 152/80 (104) 99 09/13/17 14:00 18 09/13/17 12:00 98.2 87 18 170/100 (123) 96 I/O 09/13/17 09/13/17 09/13/17 09/14/17 09/14/17 09/14/17 07:00 15:00 23:00 07:00 15:00 23:00 Intake Total 480 ml 600 ml 640 ml Output Total 300 ml Balance 480 ml 600 ml 340 ml Intake Oral 480 ml 600 ml 640 ml Output Urine Total 300 ml # Voids 3 3 1 # Bowel Movements 0 0 0 Result Diagram: 09/14/17 0532 09/14/17 0532 Objective Remarks RUE: dressings clean and dry. itnact. NVI. +sling/swathe Assessment & Plan Assessment and Plan 1) Right Proximal Humerus Fx s/p ORIF - POD 5 -NWB -no motion -maintain sling and swathe at all times -daily dressing changes -CM for rehab vs home with [facility] -medical mgmt of vomiting and urinary retention -f/u with [facility] or [facility] in 2 weeks Erik Mancilla Jr. Sep 14, 2017 09:50
[2017-09-14 12:00] VITALS: BP 140/86; PULSE 69; RESP 18; TEMP 97.7; O2SAT 99
[2017-09-14 16:00] VITALS: BP 128/75; PULSE 55; RESP 18; TEMP 98.5; O2SAT 98
[2017-09-14] MEDS: ENOXAPARIN SODIUM 40 MG/0.4 ML SYRINGE SQ SCH (16:56)
[2017-09-14] MEDS: HYDROCHLOROTHIAZIDE 25 MG TAB PO SCH (20:13)
[2017-09-14] MEDS: ATENOLOL 25 MG TAB PO SCH (20:13)
[2017-09-14 20:53] VITALS: BP 126/71; PULSE 56; RESP 18; TEMP 98.5; O2SAT 98
[2017-09-15 00:37] VITALS: BP 138/86; PULSE 70; RESP 16; TEMP 98.3; O2SAT 98
[2017-09-15 08:00] VITALS: BP 156/90; PULSE 78; RESP 18; TEMP 98.6; O2SAT 99
[2017-09-15] MEDS: CHOLECALCIFEROL (VIT D3) 1000 UNIT TAB PO SCH (08:49)
[2017-09-15] MEDS: DOCUSATE SODIUM 50 MG/SENNA 8.6 MG TAB PO SCH ×2 (08:49→19:53)
[2017-09-15] MEDS: POTASSIUM CHLORIDE 20 MEQ CONTROLLED RELEASE TAB PO SCH (08:49)
[2017-09-15] MEDS: FUROSEMIDE 20 MG TAB PO SCH (08:49)
[2017-09-15] MEDS: ALLOPURINOL 100 MG TAB PO SCH (08:49)
[2017-09-15] MEDS: CALCIUM/VITAMIN D 250 MG/125 U TAB PO SCH ×3 (08:49→16:51)
[2017-09-15] MEDS: DILTIAZEM-CD 240 MG CAP ER PO SCH (08:50)
[2017-09-15] MEDS: SODIUM CHLORIDE 0.9% FLUSH 10 ML FLUSH IV FLUSH SCH ×2 (08:50→19:52)
--- NOTE | 2017-09-15 09:50 | HHI.FPPN ---
Subjective Remarks Patient is doing well this morning. His appetite is not fully back. He is working with physical therapy. He denies chest pain, nausea, vomiting, fever, chills, shortness of breath. (Aniket Langston MD R3) Objective Vitals Vital Signs Date Time Temp Pulse Resp B/P (MAP) Pulse Ox O2 Delivery O2 Flow Rate FiO2 09/15/17 08:19 Nasal Cannula 2.00 09/15/17 08:00 98.6 78 18 156/90 (112) 99 09/15/17 00:37 98.3 70 16 138/86 (103) 98 09/14/17 20:53 98.5 56 18 126/71 (89) 98 09/14/17 16:00 98.5 55 18 128/75 (92) 98 09/14/17 12:00 97.7 69 18 140/86 (104) 99 I/O 09/14/17 09/14/17 09/14/17 09/15/17 09/15/17 09/15/17 07:00 15:00 23:00 07:00 15:00 23:00 Intake Total 640 ml 600 ml Output Total 300 ml 520 ml Balance 340 ml 80 ml Intake Oral 640 ml 600 ml Output Urine Total 300 ml 520 ml # Voids 1 5 # Bowel Movements 0 0 (Aniket Langston MD R3) Result Diagram: 09/14/17 0532 09/14/17 0532 Objective Remarks GENERAL: This is a well-nourished, well-developed patient lying in bed, NAD SKIN: Cool and dry. Healing ecchymoses and abrasions over nose and chin with no active bleeding. CARDIOVASCULAR: Regular rate with occasional skipped beats, normal sinus rhythm RESPIRATORY: Clear to auscultation. No wheezes, rales, or rhonchi. GASTROINTESTINAL: Abdomen soft, non-tender, nondistended. Bowel sounds positive. MUSCULOSKELETAL: Right arm in sling with wrap and gauze. Bandage c/d/i. Moves fingers spontaneously and fingers sensation intact. No calf pain. NEUROLOGICAL: Awake and alert. Normal speech. (Aniket Langston MD R3) A/P Assessment and Plan 77-year-old white male with past history of atrial fibrillation, HTN, CHF presenting to the ED with right shoulder pain after a fall. Found to have fractured dislocation of R shoulder. Orthopedic surgery consulted and ORIF on . Patient has had some urinary retention postoperatively as well as some nausea and vomiting which have been improving. Discharge Planning Possibly today Will need SNF upon discharge, awaiting acceptance Inquiring about insurance coverage of anticoagulation moving forward (Aniket Langston MD R3) Attending Attestation Patient seen and examined and discussed with the resident team. Agree with plan of care as discussed with me and documented in the resident note. Anticipate transfer to nursing home facility today for rehab. (Yulia Langston MD) Problem List: (1) Fracture of right humerus ICD Codes: S42.301A - Unspecified fracture of shaft of humerus, right arm, initial encounter for closed fracture Status: Acute Plan: Patient with fracture and dislocation of right humerus after a fall. Head CT was negative. Shoulder x-ray on admission shows comminuted fractures of the surgical neck and greater tuberosity of the humerus. Greater tuberosity superiorly displaced. Anterior dislocation of the glenohumeral joint -Orthopedic surgery consulted, appreciate recommendations -ORIF 09/09, POD#6 -Continue Lovenox for anticoagulation -Daily dressing changes -PT/OT -Will hold [place], as may be causing nausea -Tylenol for pain (2) Atrial fibrillation ICD Codes: I48.91 - Unspecified atrial fibrillation Status: Chronic Plan: -Patient on warfarin 2 mg p.o. daily as anticoagulation -This was requested to be reversed by orthopedic surgery -INR of 2.6 on admission - corrected to 1.5 after vitamin K on 09/09. -Started Lovenox 40 mg daily on 09/10 -Consulting case management to inquire about insurance coverage for Xarelto as a possible long-term anticoagulant -Continue at home diltiazem ER 120 mg p.o. twice daily -Converted to diltiazem CD 240 mg daily by pharmacy due to protocol -Continue at home atenolol 25 mg p.o. daily (3) Urinary retention ICD Codes: R33.9 - Retention of urine, unspecified Status: Resolved Plan: Patient has had urinary retention postoperatively requiring occasional in and out cath Improving We will continue to monitor, consider adding Flomax (4) HTN (hypertension) ICD Codes: I10 - Essential (primary) hypertension Status: Chronic Plan: -Continue at home hydrochlorothiazide 25 mg p.o. daily (5) Congestive heart failure ICD Codes: I50.9 - Heart failure, unspecified Status: Chronic Plan: -Continue at home furosemide 20 mg p.o. daily -Continue at home potassium chloride ER 20 mEq p.o. daily (6) Gout ICD Codes: M10.9 - Gout, unspecified Status: Chronic Plan: -Continue at home allopurinol 100 mg p.o. daily (7) FEN Status: Acute Plan: Fluids: No IVF at this time Electrolytes: Will replete as needed Nutrition: regular diet DVT Prophylaxis: Lovenox GI Prophylaxis: None indicated at this time Pain/fever management: Tylenol as needed (Aniket Langston MD R3) Problem Qualifiers (1) Fracture of right humerus: Qualified Codes: S42.231A - 3-part fracture of surgical neck of right humerus, initial encounter for closed fracture (2) Atrial fibrillation: Qualified Codes: I48.91 - Unspecified atrial fibrillation (3) HTN (hypertension): Qualified Codes: I10 - Essential (primary) hypertension (4) Congestive heart failure: Qualified Codes: I50.9 - Heart failure, unspecified Aniket Langston MD R3 Sep 15, 2017 09:50 Yulia Langston MD Sep 15, 2017 12:12
[2017-09-15 12:00] VITALS: BP 153/92; PULSE 72; RESP 18; TEMP 99.4; O2SAT 99
--- NOTE | 2017-09-15 12:13 | HHI.DS ---
Discharge Summary Admission Date Sep 08, 2017 at 23:26 Discharge Date: September 16, 2017 Admitting Diagnosis Fracture dislocation right shoulder. Patient is on anticoagulation (1) Fracture of right humerus ICD Codes: S42.301A - Unspecified fracture of shaft of humerus, right arm, initial encounter for closed fracture Status: Acute (2) Atrial fibrillation ICD Codes: I48.91 - Unspecified atrial fibrillation Status: Chronic (3) Urinary retention ICD Codes: R33.9 - Retention of urine, unspecified Status: Resolved (4) HTN (hypertension) ICD Codes: I10 - Essential (primary) hypertension Status: Chronic (5) Congestive heart failure ICD Codes: I50.9 - Heart failure, unspecified Status: Chronic Brief History Mr. Ram is a 77-year-old white male with a past medical history of hypertension and atrial fibrillation presenting with right shoulder pain. He states that he was at the baseball game when he was walking to his seat and slipped on the edge of a step. He fell on his outstretched arm and landed on his nose. He states that he heard a pop in his arm and was unable to move it. However, he is able to move his fingers and has no loss of sensation. He did not lose consciousness. He states that after he fell he sat down and defecated all over himself. He was taken to the hospital by [facility]. Of note, he had 2 cups of beer at the game. CBC/BMP: 09/14/17 0532 09/14/17 0532 Significant Findings Laboratory Tests Test 09/13/17 11:05 09/14/17 05:32 White Blood Count 13.9 TH/MM3 (4.0-11.0) Red Blood Count 4.21 MIL/MM3 (4.50-5.90) 4.05 MIL/MM3 (4.50-5.90) Hemoglobin 12.0 GM/DL (13.0-17.0) 11.8 GM/DL (13.0-17.0) Hematocrit 36.2 % (39.0-51.0) 35.0 % (39.0-51.0) Neutrophils (%) (Auto) 79.9 % (16.0-70.0) Lymphocytes (%) (Auto) 8.4 % (9.0-44.0) Monocytes (%) (Auto) 10.7 % (0.0-8.0) Neutrophils # (Auto) 11.1 TH/MM3 (1.8-7.7) Monocytes # (Auto) 1.5 TH/MM3 (0-0.9) Blood Urea Nitrogen 25 MG/DL (7-18) 27 MG/DL (7-18) Random Glucose 112 MG/DL (74-106) 118 MG/DL (74-106) Carbon Dioxide Level 33.1 MEQ/L (21.0-32.0) 33.4 MEQ/L (21.0-32.0) Estimat Glomerular Filtration Rate 87 ML/MIN (>89) 86 ML/MIN (>89) PE at Discharge GENERAL: This is a well-nourished, well-developed patient lying in bed, NAD SKIN: Cool and dry. Healing ecchymoses and abrasions over nose and chin with no active bleeding. CARDIOVASCULAR: Regular rate with occasional skipped beats, normal sinus rhythm RESPIRATORY: Clear to auscultation. No wheezes, rales, or rhonchi. GASTROINTESTINAL: Abdomen soft, non-tender, nondistended. Bowel sounds positive. MUSCULOSKELETAL: Right arm in sling with wrap and gauze. Bandage c/d/i. Moves fingers spontaneously and fingers sensation intact. No calf pain. NEUROLOGICAL: Awake and alert. Normal speech. Hospital Course 77-year-old male with history of A. fib, CHF, HTN who presented to the ED after a fall on outstretched arm. X-rays at that time showed fracture of the surgical neck and greater tuberosity of the humerus with displacement. Also showed anterior dislocation of the glenohumeral joint. CT head was also performed on admission and it was negative. Orthopedic surgery was consulted at that time and underwent ORIF on 09/09. Patient tolerated procedure well aside from having some postop urinary retention as well as nausea and vomiting. This resolved over the next several days postoperatively. Physical therapy recommended inpatient rehab, and on 09/16 a SNF was arranged. Both patient and primary team felt patient was safe for discharge at that time. Of note patient has a history of A. fib and was on Coumadin prior to admission. Patient was started on Lovenox postoperatively and will continue be on Lovenox at the SNF. Transition to a novel anticoagulant should be considered once patient is prepared for discharge from SNF. Pt Condition on Discharge: Good Discharge Disposition: Discharge to SNF Discharge Instructions DIET: Follow Instructions for: As Tolerated, No Restrictions Activities you can perform: See Additionl Instruction Other Activity Instructions: Per PT Follow up Referrals: Orthopedics - 2 Weeks @ [facility] with Donnie Luis MD PCP Follow-up - 2 Weeks with Brandon Gallegos MD R2 New Medications: Hydrocodone-Acetaminophen (Hydrocodone-Acetaminophen) 7.5 Mg-325 Mg Tab 1 TAB PO Q4H PRN for PAIN, #60 TAB 0 Refills Enoxaparin Inj (Lovenox Inj) 40 Mg/0.4 Ml Syr 40 MG SQ Q24H, #30 INJECTION Sennosides-Docusate Sodium (Gnp Senna Plus 8.6-50 mg) 8.6 Mg-50 Mg Tab 1 TAB PO BID, #30 TAB Continued Medications: Acetaminophen (Tylenol) 325 Mg Tab 650 MG PO Q4H PRN for PAIN SCALE 1 TO 3, TAB 0 Refills Allopurinol (Allopurinol) 100 Mg Tab 100 MG PO DAILY for Gout, #30 TAB 0 Refills Atenolol (Atenolol) 25 Mg Tab 25 MG PO DAILY for Blood Pressure Management, #30 TAB Diltiazem ER 12 HR (Diltiazem ER 12 HR) 120 Mg Caper 120 MG PO BID, #60 CAP 0 Refills Furosemide (Furosemide) 20 Mg Tab 20 MG PO DAILY, #30 TAB 0 Refills Hydrochlorothiazide (Hydrochlorothiazide) 25 Mg Tab 25 MG PO DAILY, #30 TAB 0 Refills Potassium Chloride ER (Potassium Chloride ER) 20 Meq Tab 20 MEQ PO DAILY for Electrolyte Replacement, #30 TAB 0 Refills Discontinued Medications: Acetaminophen (Tylenol) 325 Mg Tab 325 MG PO Q4H PRN for PAIN SCALE 1 TO 2, TAB 0 Refills Francisco Mcqueen MD R1 Sep 15, 2017 12:13
[2017-09-15 16:00] VITALS: BP 155/76; PULSE 73; RESP 18; TEMP 98.5; O2SAT 99
[2017-09-15] MEDS: ENOXAPARIN SODIUM 40 MG/0.4 ML SYRINGE SQ SCH (16:51)
[2017-09-15] MEDS: ATENOLOL 25 MG TAB PO SCH (19:53)
[2017-09-15] MEDS: HYDROCHLOROTHIAZIDE 25 MG TAB PO SCH (19:53)
[2017-09-15 20:00] VITALS: BP 150/74; PULSE 66; RESP 17; TEMP 98.4; O2SAT 99
[2017-09-15] MEDS: diphenhydrAMINE HCL 25 MG CAP PO PRN (21:39)
[2017-09-16 00:01] VITALS: BP 121/63; PULSE 63; RESP 18; TEMP 98.7; O2SAT 97
[2017-09-16] MEDS: ACETAMINOPHEN 325 MG TAB PO PRN (03:25)
[2017-09-16 08:00] VITALS: BP 165/86; PULSE 74; RESP 18; TEMP 98.2; O2SAT 98
[2017-09-16] MEDS: FUROSEMIDE 20 MG TAB PO SCH (09:01)
[2017-09-16] MEDS: POTASSIUM CHLORIDE 20 MEQ CONTROLLED RELEASE TAB PO SCH (09:01)
[2017-09-16] MEDS: DOCUSATE SODIUM 50 MG/SENNA 8.6 MG TAB PO SCH (09:01)
[2017-09-16] MEDS: CHOLECALCIFEROL (VIT D3) 1000 UNIT TAB PO SCH (09:01)
[2017-09-16] MEDS: DILTIAZEM-CD 240 MG CAP ER PO SCH (09:01)
[2017-09-16] MEDS: SODIUM CHLORIDE 0.9% FLUSH 10 ML FLUSH IV FLUSH SCH (09:01)
[2017-09-16] MEDS: MAGNESIUM HYDROXIDE SUSP 30 ML CUP PO PRN (09:01)
[2017-09-16] MEDS: ALLOPURINOL 100 MG TAB PO SCH (09:01)
[2017-09-16] MEDS: CALCIUM/VITAMIN D 250 MG/125 U TAB PO SCH ×2 (09:01→13:20)
--- NOTE | 2017-09-16 10:09 | HHI.FPPN ---
Subjective Remarks Pt seen and examined this morning. No acute events overnight. Awaiting auth from insurance, d/c placed yesterday. Doing well, no complaints. Pain controlled. No nausea/vomiting. Denies any fever/chills, chest pain, SOB, abdominal pain, leg pain. (Brandon Gallegos MD R2) Objective Vitals Vital Signs Date Time Temp Pulse Resp B/P (MAP) Pulse Ox O2 Delivery O2 Flow Rate FiO2 09/16/17 08:26 Nasal Cannula 2.00 09/16/17 08:00 98.2 74 18 165/86 (112) 98 09/16/17 00:01 98.7 63 18 121/63 (82) 97 09/15/17 20:00 98.4 66 17 150/74 (99) 99 09/15/17 16:00 98.5 73 18 155/76 (102) 99 09/15/17 12:00 99.4 72 18 153/92 (112) 99 I/O 09/15/17 09/15/17 09/15/17 09/16/17 09/16/17 09/16/17 07:00 15:00 23:00 07:00 15:00 23:00 Intake Total 400 ml 240 ml Balance 400 ml 240 ml Intake Oral 400 ml 240 ml # Voids 5 2 # Bowel Movements 0 (Brandon Gallegos MD R2) Result Diagram: 09/14/17 0532 09/14/17 0532 Objective Remarks GENERAL: Lying in bed, NAD SKIN: Cool and dry. Healing ecchymoses and abrasions over nose and chin with no active bleeding. CARDIOVASCULAR: Regular rate with occasional skipped beats, normal sinus rhythm RESPIRATORY: Clear to auscultation. No wheezes, rales, or rhonchi. GASTROINTESTINAL: Abdomen soft, non-tender, nondistended. MUSCULOSKELETAL: Right arm in sling with wrap and gauze. Bandage c/d/i. Moves fingers spontaneously and fingers sensation intact. No calf pain. NEUROLOGICAL: Awake and alert. Normal speech. (Brandon Gallegos MD R2) A/P Assessment and Plan 77-year-old white male with past history of atrial fibrillation, HTN, CHF presenting to the ED with right shoulder pain after a fall. Found to have fractured dislocation of R shoulder. Orthopedic surgery consulted and ORIF on . Patient has had some urinary retention postoperatively as well as some nausea and vomiting which have been improving. Discharge Planning Today Will need SNF upon discharge, awaiting acceptance (Brandon Gallegos MD R2) Attending Attestation Patient seen and examined. Case reviewed and discussed with the resident team. Agree with plan of care as discussed with me and documented in the resident note. (Yulia Langston MD) Problem List: (1) Fracture of right humerus ICD Codes: S42.301A - Unspecified fracture of shaft of humerus, right arm, initial encounter for closed fracture Status: Acute Plan: Patient with fracture and dislocation of right humerus after a fall. Head CT was negative. Shoulder x-ray on admission shows comminuted fractures of the surgical neck and greater tuberosity of the humerus. Greater tuberosity superiorly displaced. Anterior dislocation of the glenohumeral joint -Orthopedic surgery consulted, appreciate recommendations -ORIF 09/09, POD#7 -Continue Lovenox for anticoagulation -Daily dressing changes -F/u with ortho in 2 weeks -PT/OT -Will hold [place], as may be causing nausea -Tylenol for pain (2) Atrial fibrillation ICD Codes: I48.91 - Unspecified atrial fibrillation Status: Chronic Plan: -Patient on warfarin 2 mg p.o. daily as anticoagulation -This was requested to be reversed by orthopedic surgery -INR of 2.6 on admission - corrected to 1.5 after vitamin K on 09/09. -Started Lovenox 40 mg daily on 09/10 -Consulting case management to inquire about insurance coverage for Xarelto as a possible long-term anticoagulant -Continue at home diltiazem ER 120 mg p.o. twice daily -Converted to diltiazem CD 240 mg daily by pharmacy due to protocol -Continue at home atenolol 25 mg p.o. daily (3) HTN (hypertension) ICD Codes: I10 - Essential (primary) hypertension Status: Chronic Plan: -Continue at home hydrochlorothiazide 25 mg p.o. daily (4) Congestive heart failure ICD Codes: I50.9 - Heart failure, unspecified Status: Chronic Plan: -Continue at home furosemide 20 mg p.o. daily -Continue at home potassium chloride ER 20 mEq p.o. daily (5) Gout ICD Codes: M10.9 - Gout, unspecified Status: Chronic Plan: -Continue at home allopurinol 100 mg p.o. daily (6) FEN Status: Acute Plan: Fluids: No IVF at this time Electrolytes: Will replete as needed Nutrition: regular diet DVT Prophylaxis: Lovenox GI Prophylaxis: None indicated at this time Pain/fever management: Tylenol as needed (Brandon Gallegos MD R2) Problem Qualifiers (1) Fracture of right humerus: Qualified Codes: S42.231A - 3-part fracture of surgical neck of right humerus, initial encounter for closed fracture (2) Atrial fibrillation: Qualified Codes: I48.91 - Unspecified atrial fibrillation (3) HTN (hypertension): Qualified Codes: I10 - Essential (primary) hypertension (4) Congestive heart failure: Qualified Codes: I50.9 - Heart failure, unspecified Brandon Gallegos MD R2 September 16, 2017 10:09 Yulia Langston MD September 16, 2017 14:17
[2017-09-16 11:31] VITALS: BP 132/75; PULSE 89; RESP 18; TEMP 98.3; O2SAT 100
[2017-09-16] MEDS ORDERED: TYLE325T PO ×2 (13:04→13:06)
[2017-09-16] MEDS: ERGOCALCIFEROL (VIT D2) 50,000 UNIT CAP PO SCH (13:21)
[2017-09-16] MEDS ORDERED: BISACODYL 10 MG SUPP RECTAL PRN (13:45)
== END 2017-09-16 15:46 | DRG 494 ==
LOC: NEPC 21:51 → NEDA 23:26 → NEDH 09-09 04:50 → N06B 09-09 06:15 → N06A 09-12 14:27
PROVIDERS: ADMIT Family Medicine; ATTEND Family Medicine
PROC: 0PSF04Z Reposition Right Humeral Shaft with Internal Fixation Device, Open Approach (ICD-10-PCS; 2017-09-09)
PROC: 0HQ1XZZ Repair Face Skin, External Approach (ICD-10-PCS; 2017-09-09)
PROC: 0PSC04Z Reposition Right Humeral Head with Internal Fixation Device, Open Approach (ICD-10-PCS; principal; 2017-09-09 12:55)
DX: S42.231A 3-part fracture of surgical neck of right humerus, initial encounter for closed fracture (principal); I48.91 Unspecified atrial fibrillation; I11.0 Hypertensive heart disease with heart failure; I50.9 Heart failure, unspecified; S01.21XA Laceration without foreign body of nose, initial encounter; S00.81XA Abrasion of other part of head, initial encounter; H40.9 Unspecified glaucoma; W01.0XXA Fall on same level from slipping, tripping and stumbling without subsequent striking against object, initial encounter; R33.9 Retention of urine, unspecified; R11.2 Nausea with vomiting, unspecified; M10.9 Gout, unspecified; E78.5 Hyperlipidemia, unspecified; F17.290 Nicotine dependence, other tobacco product, uncomplicated; E87.6 Hypokalemia; Z79.01 Long term (current) use of anticoagulants; Z86.73 Personal history of transient ischemic attack (TIA), and cerebral infarction without residual deficits; Y92.320 Baseball field as the place of occurrence of the external cause
CPT/HCPCS: 12011; 36415; 36430; 70450; 71045; 73030; 73200; 74018; 76000; 80048; 80053; 80307; 82948; 85025; 85027; 85610; 85730; 86850; 86900; 86901; 86927; 90471; 90714; 93005; 94150; C1713; C9132; J0330; J0690; J1580; J1650; J2175; J2270; J2370; J2405; J2550; J2710; J3010; J3370; J3430; J7030; J7050; J7120; P9017